=== PATIENT | female | born 1965 | race Caucasian/White ===

== ENCOUNTER 2020-06-19 08:09 | Outpatient (REF) | payer OTHER, SELFPAY ==
--- NOTE | 2020-06-19 08:15 | MM_ITS ---
EXAMINATION: MM SCREENING DIGITAL BREAST TOMOSYNTHESIS, BILATERAL CLINICAL INFORMATION: Screening. Asymptomatic. Family history breast cancer maternal great aunt. The lifetime risk of breast cancer based on the Tyrer-Cuzick Model is 10%. COMPARISON: Mammography: 06/18/2019, 06/15/2018 TECHNIQUE: Digital breast tomosynthesis is performed in both the craniocaudal and mediolateral oblique views along with computer-aided detection (CAD). Synthesized 2D images are generated from the tomosynthesis. FINDINGS: The breasts are extremely dense, which lowers the sensitivity of mammography (ACR BI-RADS breast composition Category d). There are no significant masses, abnormal calcifications, or other abnormalities. Parenchymal pattern is similar to prior studies. There is no developing density. Scattered bilateral calcifications are again seen. There is intramammary node again noted outer right breast. MM/MM tomosynthesis screening BI IMPRESSION: No significant changes from prior studies. ASSESSMENT: BI-RADS 2: Benign RECOMMENDATION: Routine annual mammography screening. This patient's information was entered into a reminder system with a target due date for their next mammogram.
== END 2020-06-19 08:10 | disposition home or self-care (01) ==
LOC: HO.MAMMO 08:09
PROVIDERS: PCP Internal Medicine; Visit Provider Internal Medicine
DX: Z12.31 Encounter for screening mammogram for malignant neoplasm of breast (principal)
CPT/HCPCS: 77063; 77067

== ENCOUNTER 2020-11-24 10:06 | Outpatient (REF) | payer OTHER, SELFPAY | END 2020-11-24 10:07 | disposition home or self-care (01) | LOC: HO.LNP 10:06 | PROVIDERS: Visit Provider Otolaryngology | DX: B37.9 Candidiasis, unspecified (principal) | CPT/HCPCS: 87102 ==

== ENCOUNTER 2021-01-27 12:02 | Outpatient (REF) | payer OTHER, SELFPAY ==
[2021-01-27 13:13] LABS: MANUAL DIFF FLAG NO
[2021-01-27 13:21] LABS: Basophils Percent Auto 0.7 % (0-2); Eosinophils Absolute Auto 0.1 X10*3/uL (0.0-0.4); Eosinophils Percent Auto 2.9 % (0-4); Hematocrit 38.6 % (37-47); Hemoglobin 12.6 g/dl (12.0-16.0); Imm Gran Abs Auto 0.01 X10*3/uL (0.00-0.03); Imm Gran Pct Auto 0.2 % (0.0-0.4); Lymphocytes Absolute Auto 1.5 X10*3/uL (1.2-4.9); Lymphocytes Percent Auto 35.6 % (20-40); Mean Corpuscular HGB Conc 32.6 g/dl (31.0-35.0); Mean Corpuscular Hemoglobin 30.7 pg (27.0-33.0); Mean Corpuscular Volume 93.9 fL (80-98); Monocytes Absolute Auto 0.3 X10*3/uL (0.1-1.2); Monocytes Percent Auto 8.1 % (2-11); Neutrophils Absolute Auto 2.1 X10*3/uL (2.0-8.3); Neutrophils Percent Auto 52.5 % (45-73); Platelet Count 325 X10*3/uL (160-400); Red Blood Count 4.11 X10*6/uL (4.20-5.50); White Blood Count 4.1 X10*3/uL (4.8-10.8)
[2021-01-27 13:54] LABS: Alanine Aminotransferase 19 U/L (0-31); Albumin Level 4.4 g/dL (3.5-5.0); Alkaline Phosphatase 64 U/L (39-117); Anion Gap 11 (12-20); Aspartate Amino Transferase 21 U/L (5-31); Bilirubin Total 1.3 mg/dL (0.0-1.0); Blood Urea Nitrogen 18 mg/dL (9-16); Calcium 9.4 mg/dL (8.4-10.2); Carbon Dioxide 28 mmol/L (22-29); Chloride 105 mmol/L (96-108); Estimated Glomerular Filt Rate > 60; Glucose Random 83 mg/dL (60-115); Potassium 4.4 mmol/L (3.3-5.1); Sodium 140 mmol/L (135-145); Total Protein 6.6 g/dL (6.5-8.0)
[2021-01-27 13:57] LABS: Cholesterol 244 mg/dL; HDL Cholesterol 66 mg/dL; LDL Cholesterol Calculated 165 mg/dl; Triglycerides 68 mg/dL
[2021-01-27 14:10] LABS: Thyroid Stimulating Hormone 1.05 uIU/mL (0.32-4.0); Vitamin D 25-OH Total 29.9 ng/mL (>30)
== END 2021-01-27 12:03 | disposition home or self-care (01) ==
LOC: HO.MANLDS 12:02
PROVIDERS: PCP Internal Medicine; Visit Provider Internal Medicine
DX: Z00.00 Encounter for general adult medical examination without abnormal findings (principal)
CPT/HCPCS: 36415; 80053; 80061; 82306; 84443; 85025

== ENCOUNTER 2021-02-04 13:02 | Outpatient (REF) | payer OTHER, SELFPAY ==
--- NOTE | ~2021-02-04 | US_ITS ---
EXAMINATION: US SCREENING ULTRASOUND BREAST, BILATERAL CLINICAL INFORMATION: Very dense breasts on mammography. Screening ultrasound. Tyrer-Cuzick Score 10%. COMPARISON: Digital breast tomosynthesis 06/19/2020; screening breast ultrasound 02/01/2019, 01/30/2018, 05/23/2017. TECHNIQUE: Ultrasound is performed using grayscale imaging and color Doppler. Imaging is performed to include the four quadrants and retroareolar region. Both breasts are imaged. FINDINGS: Right breast: There is no suspicious finding by ultrasound. There is no solid mass or focal architectural abnormality. Again, there are scattered tiny cysts under 1 cm. There is a stable 0.5 cm acorn cyst 8:00 position 6 cm from nipple with no associated color and good through transmission of sound. There is an incidental intramammary node 10:00 position 7 cm from nipple measuring 0.3 x 0.7 cm with normal lashay architecture and color flow pattern. Left breast: There is no suspicious finding by ultrasound. There is no solid mass or focal architectural abnormality. Again, there are scattered tiny cyst under 1 cm. US/US breast RT complete IMPRESSION: No suspicious findings on screening breast ultrasound. ASSESSMENT: BI-RADS 2: Benign RECOMMENDATION: Routine annual mammography screening. This patient's information was entered into a reminder system with a target due date for their next mammogram.
--- NOTE | ~2021-02-04 | US_ITS ---
EXAMINATION: US SCREENING ULTRASOUND BREAST, BILATERAL CLINICAL INFORMATION: Very dense breasts on mammography. Screening ultrasound. Tyrer-Cuzick Score 10%. COMPARISON: Digital breast tomosynthesis 06/19/2020; screening breast ultrasound 02/01/2019, 01/30/2018, 05/23/2017. TECHNIQUE: Ultrasound is performed using grayscale imaging and color Doppler. Imaging is performed to include the four quadrants and retroareolar region. Both breasts are imaged. FINDINGS: Right breast: There is no suspicious finding by ultrasound. There is no solid mass or focal architectural abnormality. Again, there are scattered tiny cysts under 1 cm. There is a stable 0.5 cm acorn cyst 8:00 position 6 cm from nipple with no associated color and good through transmission of sound. There is an incidental intramammary node 10:00 position 7 cm from nipple measuring 0.3 x 0.7 cm with normal lashay architecture and color flow pattern. Left breast: There is no suspicious finding by ultrasound. There is no solid mass or focal architectural abnormality. Again, there are scattered tiny cyst under 1 cm. US/US breast LT complete IMPRESSION: No suspicious findings on screening breast ultrasound. ASSESSMENT: BI-RADS 2: Benign RECOMMENDATION: Routine annual mammography screening. This patient's information was entered into a reminder system with a target due date for their next mammogram.
== END 2021-02-04 13:03 | disposition home or self-care (01) ==
LOC: HO.MAMMO 13:02
PROVIDERS: Visit Provider Surgery
DX: R92.2 Inconclusive mammogram (principal)
CPT/HCPCS: 76641

== ENCOUNTER → 2021-04-17 09:05 | Outpatient (BNVA) | payer OTHER, SELFPAY | PROVIDERS: PCP Internal Medicine; Visit Provider Surgery ==

== ENCOUNTER 2021-11-04 09:54 | Outpatient (REF) | payer OTHER, SELFPAY ==
--- NOTE | ~2021-11-04 | MM_ITS ---
EXAMINATION: MM SCREENING DIGITAL BREAST TOMOSYNTHESIS, BILATERAL CLINICAL INFORMATION: Screening. Asymptomatic. The lifetime risk of breast cancer based on the Tyrer-Cuzick Model is 10%. COMPARISON: Mammography: 06/19/2020, 06/18/2019, 06/15/2018; bilateral breast ultrasound 02/04/2021. TECHNIQUE: Digital breast tomosynthesis is performed in both the craniocaudal and mediolateral oblique views along with computer-aided detection (CAD). Synthesized 2D images are generated from the tomosynthesis. FINDINGS: The breasts are extremely dense, which lowers the sensitivity of mammography (ACR BI-RADS breast composition Category d). Parenchymal pattern is similar to prior studies. There is no interval significant mass or architectural abnormality, developing density, or architectural changes. Scattered benign round and coarse round calcifications are again seen. The axilla and skin contours are unremarkable. No significant changes from prior studies. MM/MM tomosynthesis screening BI IMPRESSION: No mammographic evidence of malignancy. ASSESSMENT: BI-RADS 2: Benign RECOMMENDATION: Routine annual mammography screening. This patient's information was entered into a reminder system with a target due date for their next mammogram.
== END 2021-11-04 09:55 | disposition home or self-care (01) ==
LOC: HO.MAMMO 09:54
PROVIDERS: PCP Internal Medicine; Visit Provider Internal Medicine
DX: Z12.31 Encounter for screening mammogram for malignant neoplasm of breast (principal)
CPT/HCPCS: 77063; 77067

== ENCOUNTER 2022-05-20 12:00 | Outpatient (REF) | payer OTHER, SELFPAY ==
--- NOTE | ~2022-05-20 | US_ITS ---
EXAMINATION: US SCREENING ULTRASOUND BREAST, BILATERAL CLINICAL INFORMATION: Extremely dense breasts on mammography. Screening ultrasound. Tyrer-Cuzick Score 10%. COMPARISON: Digital breast tomosynthesis 11/04/2021, bilateral breast screening ultrasound 02/04/2021 and 02/01/2019. TECHNIQUE: Ultrasound is performed using grayscale imaging and color Doppler. Imaging is performed to include the four quadrants and retroareolar region. Both breasts are imaged. FINDINGS: Right breast: There is no interval mass or architectural abnormality. No significant changes from prior exams. Again, there is a circumscribed complicated foam cyst 8:00 position 6 cm from nipple measuring 0.5 cm with increased through-transmission of sound and no associated color flow. There is an incidental intramammary node 10:00 position 7 cm from nipple with normal lashay architecture and color flow. Left breast: There is no interval mass or architectural abnormality. No significant changes from prior exams. Again, there is scattered tiny cysts present. US/US breast RT complete IMPRESSION: No suspicious findings on screening breast ultrasound. ASSESSMENT: BI-RADS 2: Benign RECOMMENDATION: Routine annual mammography screening. This patient's information was entered into a reminder system with a target due date for their next mammogram.
--- NOTE | ~2022-05-20 | US_ITS ---
EXAMINATION: US SCREENING ULTRASOUND BREAST, BILATERAL CLINICAL INFORMATION: Extremely dense breasts on mammography. Screening ultrasound. Tyrer-Cuzick Score 10%. COMPARISON: Digital breast tomosynthesis 11/04/2021, bilateral breast screening ultrasound 02/04/2021 and 02/01/2019. TECHNIQUE: Ultrasound is performed using grayscale imaging and color Doppler. Imaging is performed to include the four quadrants and retroareolar region. Both breasts are imaged. FINDINGS: Right breast: There is no interval mass or architectural abnormality. No significant changes from prior exams. Again, there is a circumscribed complicated foam cyst 8:00 position 6 cm from nipple measuring 0.5 cm with increased through-transmission of sound and no associated color flow. There is an incidental intramammary node 10:00 position 7 cm from nipple with normal lashay architecture and color flow. Left breast: There is no interval mass or architectural abnormality. No significant changes from prior exams. Again, there is scattered tiny cysts present. US/US breast LT complete IMPRESSION: No suspicious findings on screening breast ultrasound. ASSESSMENT: BI-RADS 2: Benign RECOMMENDATION: Routine annual mammography screening. This patient's information was entered into a reminder system with a target due date for their next mammogram.
== END 2022-05-20 12:01 | disposition home or self-care (01) ==
LOC: HO.MAMMO 12:00
PROVIDERS: Visit Provider Surgery
DX: R92.2 Inconclusive mammogram (principal)
CPT/HCPCS: 76641

== ENCOUNTER 2022-05-24 09:45 | Outpatient (REF) | payer OTHER, SELFPAY ==
[2022-05-24 11:06] LABS: MANUAL DIFF FLAG NO
[2022-05-24 11:08] LABS: Basophils Absolute Auto 0.1 X10*3/uL (0.0-0.2); Basophils Percent Auto 1.3 % (0-2); Eosinophils Absolute Auto 0.1 X10*3/uL (0.0-0.4); Eosinophils Percent Auto 3.6 % (0-4); Hematocrit 41.3 % (37.0-47.0); Hemoglobin 13.6 g/dl (12.0-16.0); Imm Gran Abs Auto 0.01 X10*3/uL (0.00-0.03); Imm Gran Pct Auto 0.3 % (0.0-0.4); Lymphocytes Absolute Auto 1.6 X10*3/uL (1.2-4.9); Lymphocytes Percent Auto 41.1 % (20-40); Mean Corpuscular HGB Conc 32.9 g/dl (31.0-35.0); Mean Corpuscular Hemoglobin 30.5 pg (27.0-33.0); Mean Corpuscular Volume 92.6 fL (80.0-98.0); Mean Platelet Volume 8.9 fL (9.4-12.3); Monocytes Absolute Auto 0.3 X10*3/uL (0.1-1.2); Monocytes Percent Auto 8.1 % (2-11); Neutrophils Absolute Auto 1.8 x10*3/uL (2.0-8.3); Neutrophils Percent Auto 45.6 % (45-73); Platelet Count 347 X10*3/uL (160-400); Red Blood Count 4.46 X10*6/uL (4.20-5.50); Red Cell Distribution Width 12.5 % (11.0-16.0); White Blood Count 3.8 X10*3/uL (4.8-10.8)
[2022-05-24 11:21] LABS: Estimated Average Glucose 108 mg/dL; Hemoglobin A1c % 5.4 %
[2022-05-24 11:38] LABS: Alanine Aminotransferase 17 U/L (0-31); Albumin Level 4.5 g/dL (3.5-5.0); Alkaline Phosphatase 56 U/L (39-117); Anion Gap 13 (12-20); Aspartate Amino Transferase 21 U/L (5-31); Bilirubin Total 1.1 mg/dL (0.0-1.0); Blood Urea Nitrogen 18 mg/dL (9-16); Calcium 9.3 mg/dL (8.4-10.2); Carbon Dioxide 26 mmol/L (22-29); Chloride 105 mmol/L (96-108); Cholesterol 260 mg/dL; Estimated Glomerular Filt Rate > 60; Glucose Random 106 mg/dL (60-115); HDL Cholesterol 71 mg/dL; LDL Cholesterol Calculated 180 mg/dl; Potassium 3.9 mmol/L (3.3-5.1); Sodium 140 mmol/L (135-145); Total Protein 6.6 g/dL (6.5-8.0); Triglycerides 46 mg/dL
[2022-05-24 11:59] LABS: Thyroid Stimulating Hormone 1.89 uIU/mL (0.32-4.0); Vitamin D 25-OH Total 29.6 ng/mL (>30)
[2022-05-24 12:37] LABS: Vitamin B12 235 pg/mL (200-900)
== END 2022-05-24 09:46 | disposition home or self-care (01) ==
LOC: HO.MANLDS 09:45
PROVIDERS: Visit Provider Internal Medicine
DX: Z00.00 Encounter for general adult medical examination without abnormal findings (principal)
CPT/HCPCS: 36415; 80053; 80061; 82306; 82607; 83036; 84443; 85025

== ENCOUNTER 2022-10-04 12:06 | Outpatient (REF) | payer OTHER, SELFPAY ==
[2022-10-04 14:04] LABS: MANUAL DIFF FLAG NO
[2022-10-04 14:29] LABS: Basophils Absolute Auto 0.1 X10*3/uL (0.0-0.2); Basophils Percent Auto 0.9 % (0-2); Eosinophils Absolute Auto 0.1 X10*3/uL (0.0-0.4); Eosinophils Percent Auto 1.9 % (0-4); Hematocrit 39.6 % (37.0-47.0); Hemoglobin 13.2 g/dl (12.0-16.0); Imm Gran Abs Auto 0.02 X10*3/uL (0.00-0.03); Imm Gran Pct Auto 0.4 % (0.0-0.4); Lymphocytes Absolute Auto 1.8 X10*3/uL (1.2-4.9); Lymphocytes Percent Auto 33.4 % (20-40); Mean Corpuscular HGB Conc 33.3 g/dl (31.0-35.0); Mean Corpuscular Hemoglobin 31.3 pg (27.0-33.0); Mean Corpuscular Volume 93.8 fL (80.0-98.0); Mean Platelet Volume 9.3 fL (9.4-12.3); Monocytes Absolute Auto 0.3 X10*3/uL (0.1-1.2); Neutrophils Percent Auto 57.4 % (45-73); Platelet Count 357 X10*3/uL (160-400); Red Blood Count 4.22 X10*6/uL (4.20-5.50); Red Cell Distribution Width 13.2 % (11.0-16.0); White Blood Count 5.3 X10*3/uL (4.8-10.8)
[2022-10-04 15:06] LABS: Alanine Aminotransferase 16 U/L (0-31); Albumin Level 4.4 g/dL (3.5-5.0); Alkaline Phosphatase 50 U/L (39-117); Anion Gap 13 (12-20); Aspartate Amino Transferase 20 U/L (5-31); Bilirubin Total 1.8 mg/dL (0.0-1.0); Blood Urea Nitrogen 15 mg/dL (9-16); Calcium 9.6 mg/dL (8.4-10.2); Carbon Dioxide 28 mmol/L (22-29); Chloride 105 mmol/L (96-108); Cholesterol 298 mg/dL; Estimated Glomerular Filt Rate > 60; Glucose Random 113 mg/dL (60-115); HDL Cholesterol 67 mg/dL; LDL Cholesterol Calculated 214 mg/dl; Potassium 3.8 mmol/L (3.3-5.1); Sodium 142 mmol/L (135-145); Total Protein 6.6 g/dL (6.5-8.0); Triglycerides 87 mg/dL
[2022-10-04 15:26] LABS: Folate 16.7 ng/mL (> or = 4.0); Vitamin B12 222 pg/mL (200-900)
== END 2022-10-04 12:07 | disposition home or self-care (01) ==
LOC: HO.MANLDS 12:06
PROVIDERS: Visit Provider Internal Medicine
DX: E53.8 Deficiency of other specified B group vitamins (principal)
CPT/HCPCS: 36415; 80053; 80061; 82607; 82746; 85025

== ENCOUNTER 2022-11-12 10:01 | Outpatient (REF) | payer OTHER, SELFPAY ==
--- NOTE | ~2022-11-12 | MM_ITS ---
EXAMINATION: MM SCREENING DIGITAL BREAST TOMOSYNTHESIS, BILATERAL CLINICAL INFORMATION: Screening. Asymptomatic. The lifetime risk of breast cancer based on the Tyrer-Cuzick Model is 9%. COMPARISON: Mammography: 11/04/2021, 06/19/2020, 06/18/2019; bilateral screening breast ultrasound 05/20/2022, 02/04/2021. TECHNIQUE: Digital breast tomosynthesis is performed in both the craniocaudal and mediolateral oblique views along with computer-aided detection (CAD). Synthesized 2D images are generated from the tomosynthesis. FINDINGS: The breasts are extremely dense, which lowers the sensitivity of mammography (ACR BI-RADS breast composition Category d). There are no significant masses, abnormal calcifications, or other abnormalities. Parenchymal pattern is similar to prior studies. There is no developing density or architectural abnormality. The axilla and skin contours are unremarkable. No significant changes. MM/MM tomosynthesis screening BI IMPRESSION: No significant changes from prior studies. ASSESSMENT: BI-RADS 2: Benign RECOMMENDATION: Routine annual mammography screening. This patient's information was entered into a reminder system with a target due date for their next mammogram.
== END 2022-11-12 10:02 | disposition home or self-care (01) ==
LOC: HO.MAMMO 10:01
PROVIDERS: PCP Internal Medicine; Visit Provider Internal Medicine
DX: Z12.31 Encounter for screening mammogram for malignant neoplasm of breast (principal)
CPT/HCPCS: 77063; 77067

== ENCOUNTER 2023-04-19 10:42 | Outpatient (AMB) | payer OTHER, SELFPAY ==
--- NOTE | 2023-04-19 10:44 | A.OFFVIS_ITS ---
Intake Vital Signs 04/19/23 10:53 Height 5 ft 9 in Weight 161 lb 4 oz BMI 23.8 BP 127/71 Blood Pressure Location Lt brachial Position Sitting Pulse 77 Intake Visit Reasons: Annual breast exam Intake Note: Patient is seen in office for annual breast exam. Patient c/o: denies any concerns regarding the breast Dredge Or Barge Shore Hand Required: No [employer]: [employer] Present Accompanied by: Self / Same As Patient Allergies No Known Allergies Allergy (Verified 04/19/23 10:52) Medication List - Last Reconciled 04/19/23 by Kamari Ray MD sumatriptan succinate 100 mg PO DIRECTED HPI HPI Comments History of Present Illness Details 57 year old female patient returning for annual follow-up examination for extremely dense breast tissue (category D). She is a former patient of Dr. Monroe and Dr. Key as well as Drs. Villarreal and Antonia Ho. She has a family history of a maternal great aunt with breast cancer and 2 cousins with malignant melanoma. She denies a previous history of breast surgery but has had cyst aspirations. Because of her dense breast tissue she has been undergoing screening bilateral ultrasounds as well as yearly mammograms. Her most recent mammogram dated 11/12/2022 revealed extremely dense breasts but no significant masses, abnormal calcifications or other abnormalities. (BI-RADS 2). Screening ultrasounds of 05/20/2022 revealed no suspicious findings on either side (BI-RADS 2 benign). She is G5P 3 with 2 miscarriages. She breast fed her children. Menarche was the age of 15, 1st child at the age of 31, menopause at the age of 52. She denies any current breast symptoms and denies any new findings on self examination. She also reports a ganglion cyst located on her left hand between the webspace of the thumb and index finger. She denies any pain associated with it but would like to have it evaluated. [facility] Medical History Cystic breast Migraine Surgical History History of colonoscopy History of dilatation and curettage Female Reproductive History Menstrual Age of Menarche: 15 Review of Systems Const All systems reviewed & are unremarkable except as noted in HPI and below Reports headache(s) ENT Reports headache(s) Denies nipple discharge Skin/Breast Denies breast swelling, Denies breast skin changes, Denies breast pain, Denies breast mass, Denies change in breast shape and Denies nipple discharge Neuro Reports headache(s) Faisal/Lymph Denies lymphadenopathy Physical Exam Vital Signs: Last Vital Signs Pulse 77 04/19/23 10:53 BP 127/71 04/19/23 10:53 BMI result Body Mass Index 23.8 Const General: no acute distress and well developed Nutritional Appearance: well nourished Orientation/consciousness: patient oriented x3 Limitations: no limitations Neck Neck: Yes no lymphadenopathy and Yes no JVD Chest Other: Left breast: No skin change, no nipple retraction, no nipple discharge, no palpable mass, no enlarged lymph nodes. Right breast: No skin change, no nipple retraction, no nipple discharge, no palpable mass, no enlarged lymph nodes Skin Other: Warm, dry, no rash Neuro General: patient oriented x3 Extrem General: Yes no clubbing, cyanosis or edema Hand/finger images: 1. Palpable cyst at base of thumb of the webspace approximately 1 cm diameter Assessment & Plan Assessment & Plan (1) Dense breast tissue on mammogram: Code(s): R92.2 - Inconclusive mammogram Plan 57-year-old female patient presenting for screening breast examination due to dense breast tissue. She feels well and denies any ongoing breast symptoms. Her last mammogram of 11/12/2022 revealed no suspicious findings either side. Her breast continue to be dense category D. Annual screening ultrasound perf ormed on 05/20/2022 revealed no suspicious findings (BI-RADS 2). Examination today revealed no suspicious findings in either breast with no palpable mass, skin change, nipple discharge or enlarged lymph node. I recommended continued self examination and follow-up breast ultrasound now and mammogram in October 2023. She should follow up in 1 year for her annual examination. She should call sooner for any new concerns. Hand surgery consult requested for the ganglion left hand. Orders: Orders US breast LT complete 05/21/23 R92.2 - Inconclusive mammogram US breast RT complete Today R92.2 - Inconclusive mammogram Referrals Hand Surgery Referral M67.40 - Ganglion, unspecified site Coding Level of Care Code Est Pt Level 3 (09984) Diagnoses Dense breast tissue on mammogram R92.2
[2023-04-19 10:53] VITALS: BP 127/71; PULSE 77; BMI 23.8
== END 2023-04-19 11:06 | disposition home or self-care (01) ==
PROVIDERS: PCP Internal Medicine; Visit Provider Surgery
DX: R92.2 Inconclusive mammogram (principal)
CPT/HCPCS: 99214

== ENCOUNTER → 2023-04-19 10:42 | Outpatient (BNVA) | payer OTHER, SELFPAY | PROVIDERS: PCP Internal Medicine; Visit Provider Surgery ==

== ENCOUNTER 2023-06-07 14:14 | Outpatient (AMB) | payer OTHER, SELFPAY ==
[2023-06-07 14:26] VITALS: BMI 23.8
--- NOTE | 2023-06-07 14:26 | MHC.OFFVIS ---
Intake Vital Signs 06/07/23 14:26 Height 5 ft 9 in Weight 161 lb BMI 23.8 Intake Visit Reasons: RN CORRECTIONS-LT hand Ganglion, unspecified site Intake Note: Ying 58 yr old right hand dominant female presents today for a new patient visit for her left thumb ganglion cyst. States she first notice mass between her index and thumb web space. Reports no pain just mild discomfort and has noticed it grew a tiny bit. States she is would like to discuss aspiration vs surgery. Allergies No Known Allergies Allergy (Verified 06/07/23 14:30) HPI RN CORRECTIONS-LT hand Ganglion, unspecified site HPI Details Ying is a 58 year old right hand dominant woman who presents to discuss a left hand mass. She complains of a mass in the webspace between the thumb and index finger of her left hand. She says this causes some discomfort but is not particularly painful. She says she first noticed this several weeks ago and it has grown slightly. She denies any numbness or tingling She works as a teacher [facility] Medical History Cystic breast Migraine Surgical History History of colonoscopy History of dilatation and curettage Social History (Updated 06/07/23 @ 14:31 by Fatoumata Gracia CCM) Current occupational status: employed Current occupation: rt hand / professor in college Female Reproductive History Menstrual Age of Menarche: 15 Review of Systems Const All systems reviewed & are unremarkable except as noted in HPI and below Physical Exam Vital Signs: BMI result Body Mass Index 23.8 Const General: cooperative, healthy appearing and no acute distress Orientation/consciousness: patient oriented x3 HEENT Head: Yes normocephalic and Yes atraumatic Eyes EOM: EOMs intact bilaterally Resp Effort & Inspection: normal respiratory effort and able to speak in complete sentences Cardio Jugular venous distension: no JVD Skin General skin exam: turgor normal Rashes: no rashes Neuro General: patient oriented x3 Extrem Other: Evaluation of Left Upper Extremity: The patient is alert, oriented, and in no acute distress Neuro: Median, Ulnar, Radial nerves motor and sensory intact and sensation is normal to the tips of all digits Vascular: Cap refill brisk ROM: She can make a fist and extend all her digits No locking or catching No instability when testing the RCL or UCL of the thumb Skin: No lacerations or abrasions. General: No Ecchymosis. No Erythema or evidence of infection. There is a mass over the ulnar aspect of the left thumb MCP joint , measuring ~8-9mm in diameter. This is slightly mobile and feels fluid-filled Psych Appearance: grossly normal Affect: normal affect Attitude: cooperative Office Procedures Fracture Care Details: No fracture, aspiration Fracture Billing Code: Fracture Billing Code Results Reviewed Results Reviewed: 06/07/23 15:00 Lidocaine HCl 1 % [Xylocaine 1 %] 2 ml .ROUTE .[facility] Assessment & Plan Assessment & Plan (1) Ganglion cyst: Comment: left thumb Code(s): M67.40 - Ganglion, unspecified site Plan Assessment & Plan: 1. Left thumb ganglion cyst Measuring ~8-9mm in diameter Over the ulnar aspect of the MCP joint I educated her about this condition I discussed operative and non-operative treatment options The patient would like to proceed with aspiration Aspiration #1: The risks and benefits of aspiration, including but not limited to risk of damage to blood vessels, nerves, tendons, infection, failure to improve symptoms, increased pain, and possible need for further aspirations or surgical intervention. After obtaining written consent, I sterilely prepped the area over the left thumb MCP joint. I then injected subcutaneously with a small amount 1% lidocaine. I then passed an 18 gauge needle into the ganglion and aspirated . Some remaining viscous fluid was then pushed out of the ganglion. The mass was no longer palpable to myself nor the patient after the aspiration. The patient tolerated this well and with no complications. She can follow up prn Scribed for Gwen Nickerson MD by Ashok Joseph medical office supervisor, on 06/07/23 at 3:20 PM, EST. Coding Level of Care Code New Pt Level 3 (20034) Diagnoses Ganglion cyst M67.40 CPT Codes Fracture Care - Fracture Billing Code: Fracture Billing Code ([id number])
== END 2023-06-07 15:41 | disposition home or self-care (01) ==
PROVIDERS: PCP Internal Medicine; Visit Provider Orthopaedic Surgery
DX: M67.442 Ganglion, left hand (principal)
CPT/HCPCS: 20612; 99204

== ENCOUNTER → 2023-06-07 14:14 | Outpatient (BNVA) | payer OTHER, SELFPAY | PROVIDERS: PCP Internal Medicine; Visit Provider Orthopaedic Surgery | DX: M67.442 Ganglion, left hand (principal) | CPT/HCPCS: 20612 ==

== ENCOUNTER 2023-06-13 07:53 | Outpatient (REF) | payer OTHER, SELFPAY ==
[2023-06-13 14:02] LABS: Cholesterol 147 mg/dL (<200); HDL Cholesterol 62 mg/dL (>40); LDL Cholesterol Calculated 74 mg/dL (<100); Triglycerides 57 mg/dL (<150)
== END 2023-06-13 07:54 | disposition home or self-care (01) ==
LOC: HO.MANLDS 07:53
PROVIDERS: Visit Provider Internal Medicine
DX: E78.00 Pure hypercholesterolemia, unspecified (principal)
CPT/HCPCS: 36415; 80061

== ENCOUNTER 2023-06-13 11:57 | Outpatient (REF) | payer OTHER, SELFPAY ==
--- NOTE | ~2023-06-13 | US_ITS ---
EXAMINATION: US BREAST, BILATERAL CLINICAL INFORMATION: Dense breasts; screening adjunct. COMPARISON: 05/20/2022 and 02/04/2021 bilateral screening breast ultrasound. TECHNIQUE: Time grayscale and color Doppler ultrasound imaging of both breasts were performed utilizing grayscale and color Doppler imaging, to include the 4 quadrants of both breasts, and both retroareolar regions. FINDINGS: LEFT BREAST: On the images submitted for review, in the retroareolar 3:00 region of the left breast, a stable mildly complicated cyst was identified measuring 5 x 5 x 6 mm, with good through transmission, no internal color Doppler flow, and no surrounding parenchymal changes, and abutting ductal changes. This is stable from February 042020, and benign. Otherwise, only extremely dense breast tissue identified. RIGHT BREAST: On the images submitted for review, a normal intramammary lymph node was identified superficially in the right breast upper outer quadrant with normal fatty hilum and non-thickened cortex. This has no suspicious findings. Otherwise, only extremely dense breast tissue is identified with US/US breast RT complete mammo IMPRESSION: No sonographic evidence of malignancy in either breast. ASSESSMENT: Left breast: BI-RADS 2 Right breast: BI-RADS 2 RECOMMENDATIONS: Recommend continuing with routine annual screening.
--- NOTE | ~2023-06-13 | US_ITS ---
EXAMINATION: US BREAST, BILATERAL CLINICAL INFORMATION: Dense breasts; screening adjunct. COMPARISON: 05/20/2022 and 02/04/2021 bilateral screening breast ultrasound. TECHNIQUE: Time grayscale and color Doppler ultrasound imaging of both breasts were performed utilizing grayscale and color Doppler imaging, to include the 4 quadrants of both breasts, and both retroareolar regions. FINDINGS: LEFT BREAST: On the images submitted for review, in the retroareolar 3:00 region of the left breast, a stable mildly complicated cyst was identified measuring 5 x 5 x 6 mm, with good through transmission, no internal color Doppler flow, and no surrounding parenchymal changes, and abutting ductal changes. This is stable from February 042020, and benign. Otherwise, only extremely dense breast tissue identified. RIGHT BREAST: On the images submitted for review, a normal intramammary lymph node was identified superficially in the right breast upper outer quadrant with normal fatty hilum and non-thickened cortex. This has no suspicious findings. Otherwise, only extremely dense breast tissue is identified with US/US breast LT complete mammo IMPRESSION: No sonographic evidence of malignancy in either breast. ASSESSMENT: Left breast: BI-RADS 2 Right breast: BI-RADS 2 RECOMMENDATIONS: Recommend continuing with routine annual screening.
== END 2023-06-13 11:58 | disposition home or self-care (01) ==
LOC: HO.MAMMO 11:57
PROVIDERS: PCP Internal Medicine; Visit Provider Surgery
DX: R92.2 Inconclusive mammogram (principal)
CPT/HCPCS: 76641

== ENCOUNTER → 2023-06-13 12:25 | Outpatient (BNV) | payer OTHER, SELFPAY | PROVIDERS: PCP Internal Medicine; Visit Provider Radiology Diagnostic Radiology | DX: R92.311 Mammographic fatty tissue density, right breast (principal); N60.02 Solitary cyst of left breast | CPT/HCPCS: 76641 ==

== ENCOUNTER → 2023-07-01 09:00 | Outpatient (BNV) | payer OTHER, SELFPAY | PROVIDERS: PCP Internal Medicine; Visit Provider Internal Medicine Pulmonary Disease | DX: R06.02 Shortness of breath (principal) | CPT/HCPCS: 94060; 94727; 94729 ==

== ENCOUNTER 2023-07-01 09:06 | Outpatient (REF) | payer OTHER, SELFPAY ==
--- NOTE | 2023-07-01 | PFT_ITS ---
FLOWS: 1. FEV1 110% of predicted at 3.35 L. 2. FVC 120% of predicted at 4.69 L. 3. FEV1 to FVC ratio of 0.71. 4. No bronchodilator response. LUNG VOLUMES: 1. Total lung capacity 106% of predicted at 6.48 L. 2. Residual volume 92% of predicted at 1.79 L. 3. Slow vital capacity 113% of predicted at 4.69 L. 4. Expiratory reserve volume 31% of predicted at 0.34 L. 5. Diffusion capacity is normal. IMPRESSION: No obstructive or restrictive ventilatory defect. No bronchodilator response. Decreased expiratory reserve volume suggests extrathoracic restriction likely secondary to abdominal obesity. Kurt Tsai MD AP/MODL / [id number]
== END 2023-07-01 09:07 | disposition home or self-care (01) ==
LOC: HO.RESP 09:06
PROVIDERS: PCP Internal Medicine; Visit Provider Physician Assistant
DX: R06.02 Shortness of breath (principal)
CPT/HCPCS: 94010; 94727; 94729

== ENCOUNTER 2023-07-13 16:48 | Outpatient (REF) | payer OTHER, SELFPAY ==
--- NOTE | ~2023-07-13 | XR_ITS ---
EXAMINATION: XR CHEST CLINICAL INFORMATION: Chest pain and cough COMPARISON: None available. TECHNIQUE: 2 views of the chest were obtained. FINDINGS: Lungs are hyper aerated but clear. Heart, mediastinum and vascularity within normal limits. Bony structures are intact. XR/XR chest 2V IMPRESSION: No acute cardiopulmonary disease.
== END 2023-07-13 16:49 | disposition home or self-care (01) ==
LOC: HO.XRAY 16:48
PROVIDERS: PCP Physician Assistant; Visit Provider Physician Assistant
DX: R06.02 Shortness of breath (principal)
CPT/HCPCS: 71046

== ENCOUNTER 2023-08-03 11:00 | Outpatient (AMB) | payer OTHER, SELFPAY ==
[2023-08-03 11:03] VITALS: BP 132/68; PULSE 86; O2SAT 100; BMI 24.4
--- NOTE | 2023-08-03 11:03 | MHC.OFFVIS ---
Intake Vital Signs 08/03/23 11:03 Height 5 ft 9 in Weight 165 lb BMI 24.4 BP 132/68 Blood Pressure Location Rt brachial Position Sitting Pulse 86 Pulse Source Pulse Oximeter Pulse Oximetry (%) 100 Oxygen Delivery Method Room Air Intake Visit Reasons: Dyspnea Contact Centre Supervisor Required: No Rn Radiology: Rn Radiology offered & declined Accompanied by: Self / Same As Patient Allergies No Known Allergies Allergy (Verified 08/03/23 11:09) Medication List - Last Reconciled 08/03/23 by Karly Guajardo LPN atorvastatin 20 mg PO BEDTIME sumatriptan succinate 100 mg PO DIRECTED HPI Dyspnea HPI Details Ying is a pleasant 58 year old female, former smoker with 20+ pack year history, quit 25+ years ago, with underlying history of anxiety and migraines. She was referred for pulmonary evaluation for intermittent chest tightness and dyspnea. She notes the intermittent chest tightness has been present for years but newly developed dyspnea. She used to run frequently but becomes breathless more than prior. She continues to be quite active walking 5 miles routinely. She had a PFT, full report below. She also had a CXR which revealed hyperinflation, otherwise unremarkable. She denies any history of respiratory conditions, however does eczema, seasonal allergies and chronic post nasal drip. She reports mother, heavy smoker, with COPD and two paternal uncles with sudden onset unknown respiratory conditions. [facility] Medical History Cystic breast Migraine Surgical History History of colonoscopy History of dilatation and curettage Social History (Updated 08/04/23 @ 19:37 by Sushila Thompson NP) Patient Tobacco Use Status: Former Tobacco user Tobacco use type: Cigarette Cigarette Packs Per Day: 1.5 Years Smoked: 15 Current occupational status: employed Current occupation: rt hand / professor in college Female Reproductive History Menstrual Age of Menarche: 15 Review of Systems Const Denies chills, Denies excessive sweating, Denies fever(s), Denies headache(s) and Denies night sweats Eyes Denies dry eyes, Denies irritation and Denies itchy eyes ENT Reports Normal hearing present, Denies headache(s), Denies nasal congestion, Denies nasal discharge and Denies sore throat Card Denies chest pain, Denies chest pain at rest, Denies chest pain with activity, Denies claudication, Denies leg edema, Denies orthopnea and Denies paroxysmal nocturnal dyspnea Resp Denies chest congestion, Denies cough, Denies excessive phlegm production, Denies pain on inspiration, Denies pain with cough, Denies stridor and Denies wheezing Musc Denies myalgias Neuro Reports Normal hearing present and Denies headache(s) Endo Denies excessive sweating Faisal/Lymph Denies lymphadenopathy Aller/Immun Denies itchy eyes and Denies wheezing Physical Exam Vital Signs: Last Vital Signs Pulse 86 08/03/23 11:03 BP 132/68 08/03/23 11:03 Pulse Ox 100 08/03/23 11:03 Oxygen Delivery Method Room Air 08/03/23 11:03 BMI result Body Mass Index 24.4 Const General: cooperative, healthy appearing, comfortable, no acute distress, well developed and alert Orientation/consciousness: patient oriented x3 Limitations: no limitations HEENT Head: Yes normal to inspection, Yes normocephalic and Yes atraumatic Ears: hearing grossly normal bilaterally and external ears normal Eyes General: appearance normal, both eyes and all related structures Eyelids: Yes eyelids normal Sclerae: sclerae normal EOM: EOMs intact bilaterally Neck Neck: Yes normal visual inspection and Yes no lymphadenopathy Lymphatic: no lymphadenopathy noted Chest Chest palpation & inspection: normal inspection of the chest Resp Effort & Inspection: normal respiratory effort, able to speak in complete sentences, no audible wheezes, no cough, no stridor, not tachypneic, no tripod positioning and no use of accessory muscles Auscultation: clear to auscultation bilaterally Cardio Jugular venous distension: no JVD Rate: regular rate Rhythm: regular rhythm Skin Other: warm, dry General skin exam: no rashes or lesions noted Neuro General: patient oriented x3 Cranial nerves: Yes Normal hearing present Cognition (Neuro): normal cognition Gait exam (Neuro): Normal gait present Extrem General: Yes normal to inspection, Yes capillary refill normal, Yes no clubbing, cyanosis or edema and Yes no pedal edema Psych Appearance: grossly normal and well kempt Speech and movement: Normal speech and movement present and Clear speech present Affect: normal affect Attitude: cooperative Thought process: Normal thought process present Thought content: Normal thought content present Insight: Good insight present (Psych) Judgement: Good judgement present (Psych) Results Reviewed Results Reviewed: [address] [address] XRay Report Signed Patient: Ying Mcarthur MR#: [id number] : 1965 Acct:[id number] Age/Sex: 58 / F ADM Date: 07/13/23 Loc: [facility] Attending Dr: Kristina LOZA Ordering Physician: Kristina Torres Date of Service: 07/13/23 Procedure(s): XR chest 2V Accession Number(s): [id number] cc: Kristina Torres~ EXAMINATION: XR CHEST CLINICAL INFORMATION: Chest pain and cough COMPARISON: None available. TECHNIQUE: 2 views of the chest were obtained. FINDINGS: Lungs are hyper aerated but clear. Heart, mediastinum and vascularity within normal limits. Bony structures are intact. XR/XR chest 2V IMPRESSION: No acute cardiopulmonary disease. Dictated By: Rand Biggs MD Signed By: <Electronically signed by Rand Biggs MD in OV> 07/15/23 0834 Assessment & Plan Assessment & Plan (1) Reactive airway disease: Code(s): J45.909 - Unspecified asthma, uncomplicated (2) Personal history of tobacco use: Code(s): Z87.891 - Personal history of nicotine dependence (3) Dyspnea on exertion: Code(s): R06.09 - Other forms of dyspnea Plan Reviewed PFT which did not reveal an obstructive or restrictive ventilatory defect. There was no bronchodilator response.There was a decrease in expiratory reserve volume which could be related to poor technique, patient stated she had coughing/clearing of throat constantly due to post nasal drip during the test. We discussed possible nasal spray and RAST testing but declined at this time. She notes dyspnea on exertion as well as chest tightness, will trial albuterol PRN and if notable improvement she would consider a maintenance inhaler. Will also send for a chest CT to assess for parenchymal disease given smoking history and hyperinflation of lungs noted on CXR. All questions were answered and patient is in agreement of plan. Will follow up to review response to albuterol and chest CT results or sooner if needed. Orders: Orders CT chest wo IV con Today R06.09 - Other forms of dyspnea, Z87.891 - Personal history of nicotine dependence Medications: New albuterol sulfate 90 mcg/actuation 2 puffs inhalation Q4-6H PRN 1 ea 3RF shortness of breath or wheezing Coding Level of Care Code New Pt Level 4 (48325) Diagnoses Reactive airway disease J45.909 Personal history of tobacco use Z87.891 Dyspnea on exertion R06.09
== END 2023-08-03 11:37 | disposition home or self-care (01) ==
PROVIDERS: PCP Physician Assistant; Referring Provider Physician Assistant; Visit Provider Nurse Practitioner Family
DX: J45.909 Unspecified asthma, uncomplicated (principal); Z87.891 Personal history of nicotine dependence; R06.09 Other forms of dyspnea
CPT/HCPCS: 99204

== ENCOUNTER → 2023-08-03 11:00 | Outpatient (BNVA) | payer OTHER, SELFPAY | PROVIDERS: PCP Physician Assistant; Referring Provider Physician Assistant; Visit Provider Nurse Practitioner Family ==

== ENCOUNTER 2023-08-31 07:24 | Outpatient (REF) | payer OTHER, SELFPAY ==
--- NOTE | ~2023-08-31 | CT_ITS ---
EXAMINATION: CT CHEST WITHOUT CONTRAST CLINICAL INFORMATION: Dyspnea. COMPARISON: Chest radiograph 07/13/2023. TECHNIQUE: Multidetector volumetric CT imaging of the chest was done. Axial MIP volume rendering provided. Sagittal and coronal reformatted images were obtained. This CT examination was performed using dose optimization techniques as appropriate, variously including the following: *Automated exposure control *Adjustment of mA and/or kV according to patient size (this includes techniques or standardized protocols for targeted exams where dose is matched to indication/reason for exam; i.e. extremities or head) *Use of iterative reconstruction technique DLP: 126.00 mGy-cm FINDINGS: LUNGS: Mild emphysematous changes are present throughout the lungs. Calcified granulomas are seen in the upper lobes as well as lower lobes. Tiny micronodules are present, none larger than 2 to 3 mm in size. Lawrence images of all have been saved. No suspicious lung masses are seen. MEDIASTINUM: The mediastinum is normal. CORONARY ARTERY CALCIFICATION: None visualized on this study. PLEURA: There is no pleural effusion. No pleural mass or thickening. AXILLA: No lymphadenopathy. UPPER ABDOMEN: Unremarkable. OSSEOUS STRUCTURES: Unremarkable. CT/CT chest wo IV con IMPRESSION: 1. Mild emphysematous changes. 2. Calcified granulomas and tiny micronodules. 3. No suspicious lung masses are seen. 4. No evidence of pulmonary metastatic disease. 5. Other than mild emphysema, cause for the patient's dyspnea has not been found. According to the UPDATED 2017 Fleischner Society recommendations, the advised follow-up imaging for solid nodules <6 mm in the middle/lower lobes is no routine follow up. According to the UPDATED 2017 Fleischner Society recommendations, the advised follow-up imaging for nodules <6mm in the upper lobes is not necessarily required in low-risk patients. In high-risk patients with a nodule in the upper lobe and/or demonstrating suspicious morphology, an optional CT follow-up at 12 months may be obtained. If stable at 12 months, no further follow-up is recommended.
== END 2023-08-31 07:25 | disposition home or self-care (01) ==
LOC: HO.CT 07:24
PROVIDERS: PCP Physician Assistant; Visit Provider Nurse Practitioner Family
DX: R06.09 Other forms of dyspnea (principal); Z87.891 Personal history of nicotine dependence
CPT/HCPCS: 71250

== ENCOUNTER 2023-09-15 14:01 | Outpatient (REF) | payer OTHER, SELFPAY ==
[2023-09-15 14:11] LABS: MANUAL DIFF FLAG NO
[2023-09-15 14:33] LABS: Basophils Percent Auto 0.8 % (0-2); Eosinophils Absolute Auto 0.1 X10*3/uL (0.0-0.4); Eosinophils Percent Auto 1.9 % (0-4); Hematocrit 38.4 % (37.0-47.0); Hemoglobin 12.6 g/dl (12.0-16.0); Imm Gran Abs Auto 0.01 X10*3/uL (0.00-0.03); Imm Gran Pct Auto 0.2 % (0.0-0.4); Lymphocytes Absolute Auto 1.5 X10*3/uL (1.2-4.9); Lymphocytes Percent Auto 28.2 % (20-40); Mean Corpuscular HGB Conc 32.8 g/dl (31.0-35.0); Mean Corpuscular Hemoglobin 30.7 pg (27.0-33.0); Mean Corpuscular Volume 93.7 fL (80.0-98.0); Mean Platelet Volume 8.8 fL (9.4-12.3); Monocytes Absolute Auto 0.4 X10*3/uL (0.1-1.2); Monocytes Percent Auto 6.6 % (2-11); Neutrophils Absolute Auto 3.3 x10*3/uL (2.0-8.3); Neutrophils Percent Auto 62.3 % (45-73); Platelet Count 317 X10*3/uL (160-400); Red Cell Distribution Width 12.9 % (11.0-16.0); White Blood Count 5.3 X10*3/uL (4.8-10.8)
[2023-09-22 08:48] LABS: Class Alternaria alternata 0; Class Aspergillus fumigatus 0; Class Bermuda Grass 0; Class Birch 0; Class Cat Dander 0; Class Cladosporium herbarum 0; Class Cockroach 0; Class Common Ragweed 0; Class Cottonwood 0; Class Derm. pterony 0; Class Dermatophagoides farinae 0; Class Dog Dander 0; Class Elm 0; Class Maple Box Elder 0; Class Mountain Cedar 0; Class Mouse Urine Protein 0; Class Mugwort 0; Class Oak 0; Class Penicillium crysogenum 0; Class Rough Pigweed 0; Class Sheep Sorrel 0; Class Sycamore 0; Class Timothy Grass 0; Class Walnut Tree 0; Class White Ash 0; Class White Mulberry 0; D001 IgE D pteronyssinus <0.10 kU/L; D002 - IgE D farinae <0.10 kU/L; E001 - IgE Cat Dander <0.10 kU/L; E005 - IgE Dog Dander <0.10 kU/L; E072-IgE Mouse Urine <0.10 kU/L; G002 IgE Bermuda Grass <0.10 kU/L; G006 - IgE Timothy Grass <0.10 kU/L; I006-IgE Cockroach, German <0.10 kU/L; Immunoglobulin E 13 kU/L (<OR=114); M001 IgE Penicillium chrysogen <0.10 kU/L; M002 - IgE Cladosporium herbar <0.10 kU/L; M003 - IgE Aspergillus fumigat <0.10 kU/L; M006 - IgE Alternaria alternat <0.10 kU/L; T001 IgE Maple/Box Elder <0.10 kU/L; T003 IgE Common Silver Birch <0.10 kU/L; T006 - IgE Cedar, Mountain <0.10 kU/L; T007 - IgE Oak, White <0.10 kU/L; T008 IgE Elm, American <0.10 kU/L; T010 - IgE Walnut <0.10 kU/L; T011 - IgE Maple Leaf Sycamore <0.10 kU/L; T014 - IgE Cottonwood <0.10 kU/L; T015 - IgE Ash, White <0.10 kU/L; T070 - IgE White Mulberry <0.10 kU/L; W001 - IgE Ragweed, Short <0.10 kU/L; W006 - IgE Mugwort <0.10 kU/L; W014 IgE Pigweed, Common <0.10 kU/L; W018 IgE Sheep Sorrel <0.10 kU/L
== END 2023-09-15 14:02 | disposition home or self-care (01) ==
LOC: HO.LAB 14:01
PROVIDERS: PCP Internal Medicine; Visit Provider Nurse Practitioner Family
DX: Z91.09 Other allergy status, other than to drugs and biological substances (principal)
CPT/HCPCS: 36415; 82785; 85025; 86003

== ENCOUNTER 2023-09-21 09:01 | Outpatient (AMB) | payer OTHER, SELFPAY ==
--- NOTE | 2023-09-21 09:50 | MHC.OFFVIS ---
Intake Intake Visit Reasons: shortness of breath concern Allergies No Known Allergies Allergy (Verified 08/03/23 11:09) HPI shortness of breath concern HPI Details Ying is a pleasant 58 year old female, former smoker with 20+ pack year history, quit 25+ years ago, with underlying history of anxiety and migraines. She was initially referred for pulmonary evaluation for intermittent chest tightness and dyspnea. PFT revealed FEV1/FVC lower limit of normal, 0.71, and chest CT revealed mild emphysema. She continues to be quite active exercising frequently and feels her breathlessness improves after working out. Today a telephone visit was conducted as she had questions regarding dyspnea and anxiety contribution. Recently she notes a great deal of stress and has had more episodes of chest tigthness/dyspnea. She had attributed it initially to being more aware of symptoms associated with being at risk for COPD however feels as though anxiety plays a significant role. She was prescribed symbicort but has yet to trial it. [facility] Medical History Cystic breast Migraine Surgical History History of colonoscopy History of dilatation and curettage Social History (Updated 08/04/23 @ 19:37 by Sushila Thompson NP) Patient Tobacco Use Status: Former Tobacco user Tobacco use type: Cigarette Cigarette Packs Per Day: 1.5 Years Smoked: 15 Current occupational status: employed Current occupation: rt hand / professor in college Female Reproductive History Menstrual Age of Menarche: 15 Review of Systems Const All systems reviewed & are unremarkable except as noted in HPI and below Physical Exam Const General: cooperative and no acute distress Orientation/consciousness: patient oriented x3 Resp Effort & Inspection: normal respiratory effort, able to speak in complete sentences and no audible wheezes Neuro General: patient oriented x3 Psych Mental Status: mental status grossly normal Speech and movement: Clear speech present Attitude: cooperative Thought process: Normal thought process present Thought content: Normal thought content present Insight: Good insight present (Psych) Judgement: Good judgement present (Psych) Assessment & Plan Assessment & Plan (1) Dyspnea on exertion: Code(s): R06.09 - Other forms of dyspnea (2) Emphysema of lung: Code(s): J43.9 - Emphysema, unspecified (3) Personal history of tobacco use: Code(s): Z87.891 - Personal history of nicotine dependence Plan Advised Ying to continue to exercise which would decrease breathlessness, while improving lung function over time as well as decrease anxiety. She is under the care of a therapist for anxiety and is aware this can be contributing to symptoms. She feels she can manage symptoms without medication through meditation and exercise. She does have symbicort to trial and if she feels her symptoms are more persistent then will consider using. At this time, patient will follow up PRN as she will be taking family medical leave. All questions were answered and patient is in agreement of plan. I spent 15 minutes speaking with the patient on the phone plus an additional 10 minutes reviewing and updating records for a total of 25 minutes Telehealth Telehealth Location of provider rendering services: practice address Location of patient: address on file Patient Identification confirmed using: Name, : Yes Telehealth method: voice only Patient verbally consented to treatment: Yes Patient verbally consented to billing insurance company: Yes Patient informed of any privacy concerns related to visit: Yes Coding Level of Care Code Tele Est Pt Level 4 (70706) Diagnoses Dyspnea on exertion R06.09 Emphysema of lung J43.9 Personal history of tobacco use Z87.891
== END 2023-09-21 09:44 | disposition home or self-care (01) ==
LOC: HO.HPS 09:01
PROVIDERS: PCP Internal Medicine; Visit Provider Nurse Practitioner Family
DX: J43.9 Emphysema, unspecified (principal); Z87.891 Personal history of nicotine dependence
CPT/HCPCS: 99214

== ENCOUNTER → 2023-09-21 09:01 | Outpatient (BNVA) | payer OTHER, SELFPAY | PROVIDERS: PCP Internal Medicine; Visit Provider Nurse Practitioner Family ==

== ENCOUNTER → 2023-11-19 10:00 | Outpatient (BNV) | payer OTHER, SELFPAY | PROVIDERS: Absent Provider Surgery; PCP Student in an Organized Health Care Education/Training Program; Visit Provider Radiology Diagnostic Radiology | DX: Z12.31 Encounter for screening mammogram for malignant neoplasm of breast (principal) | CPT/HCPCS: 77063; 77067 ==

== ENCOUNTER 2023-11-19 10:06 | Outpatient (REF) | payer OTHER, SELFPAY ==
--- NOTE | ~2023-11-19 | MM_ITS ---
EXAMINATION: MM SCREENING DIGITAL BREAST TOMOSYNTHESIS, BILATERAL CLINICAL INFORMATION: Screening. Asymptomatic. COMPARISON: Mammography: This study is compared with prior exams dating back to 2019. TECHNIQUE: Digital breast tomosynthesis is performed in both the craniocaudal and mediolateral oblique views along with computer-aided detection (CAD). Synthesized 2D images are generated from the tomosynthesis. FINDINGS: The breasts are heterogeneously dense, which may obscure small masses (ACR BI-RADS breast composition Category c). There are no significant masses, abnormal calcifications, or other abnormalities. There are bilateral benign calcifications in each breast. MM/MM tomosynthesis screening BI IMPRESSION: No mammographic evidence of malignancy. ASSESSMENT: BI-RADS BI-RADS 2 - Benign Findings RECOMMENDATION: Routine annual mammography screening. 1 year F/U This examination should not preclude the clinical evaluation of a suspicious palpable abnormality. This patient's information was entered into a reminder system with a target due date for their next mammogram.
== END 2023-11-19 10:07 | disposition home or self-care (01) ==
LOC: HO.MAMMO 10:06
PROVIDERS: Absent Provider Surgery; PCP Student in an Organized Health Care Education/Training Program; Visit Provider Internal Medicine
DX: Z12.31 Encounter for screening mammogram for malignant neoplasm of breast (principal)
CPT/HCPCS: 77063; 77067

== ENCOUNTER 2024-02-14 13:21 | Outpatient (AMB) | payer OTHER, SELFPAY ==
--- NOTE | 2024-02-14 13:19 | MHC.OFFVIS ---
Vital Signs 02/14/24 13:20 Height 5 ft 9 in Weight 163 lb 8 oz BMI 24.1 BP 98/62 Blood Pressure Location Rt brachial Position Sitting Pulse 67 Pulse Source Pulse Oximeter Pulse Oximetry (%) 97 Oxygen Delivery Method Room Air Intake Visit Reasons: dyspnea Allergies No Known Allergies Allergy (Verified 02/14/24 13:25) HPI HPI dyspnea: Details: Ying is a pleasant 58 year old female, former smoker with 20+ pack year history, quit 25+ years ago, with underlying history of anxiety and migraines. She was initially referred for pulmonary evaluation for intermittent chest tightness and dyspnea. PFT revealed FEV1/FVC lower limit of normal, 0.71, and chest CT revealed mild emphysema with micronodules <3 mm. She continues to be quite active exercising frequently and feels her symptoms are quite controlled without any respiratory medications. Today she presents for routine follow up. She denies any visits to urgent care or hospitalizations related to respiratory distress. 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 Reproductive History Menstrual Age of Menarche: 15 Review of Systems Const Denies chills, Denies excessive sweating, Denies fever(s), Denies headache(s) and Denies night sweats Eyes Denies dry eyes, Denies irritation and Denies itchy eyes ENT Reports Normal hearing present, Denies headache(s) and Reports post nasal drip Card Denies chest pain, Denies chest pain at rest, Denies chest pain with activity, Denies claudication, Denies leg edema, Denies orthopnea and Denies paroxysmal nocturnal dyspnea Resp Denies chest congestion, Denies cough, Denies excessive phlegm production, Denies pain on inspiration, Denies pain with cough, Denies stridor and Denies wheezing Musc Denies myalgias Neuro Reports Normal hearing present and Denies headache(s) Endo Denies excessive sweating Faisal/Lymph Denies lymphadenopathy Aller/Immun Denies itchy eyes, Denies seasonal rhinorrhea and Denies wheezing Physical Exam Vital Signs: Last Vital Signs Pulse 67 02/14/24 13:20 BP 98/62 02/14/24 13:20 Pulse Ox 97 02/14/24 13:20 Oxygen Delivery Method Room Air 02/14/24 13:20 BMI result Body Mass Index 24.1 Const General: cooperative, healthy appearing, comfortable, no acute distress, well developed and alert Orientation/consciousness: patient oriented x3 Limitations: no limitations HEENT Head: Yes normal to inspection, Yes normocephalic and Yes atraumatic Ears: hearing grossly normal bilaterally and external ears normal Eyes General: appearance normal, both eyes and all related structures Eyelids: Yes eyelids normal Sclerae: sclerae normal EOM: EOMs intact bilaterally Neck Neck: Yes normal visual inspection and Yes no lymphadenopathy Lymphatic: no lymphadenopathy noted Chest Chest palpation & inspection: normal inspection of the chest Resp Effort & Inspection: normal respiratory effort, able to speak in complete sentences, no audible wheezes, no cough, no stridor, not tachypneic, no tripod positioning and no use of accessory muscles Auscultation: clear to auscultation bilaterally Cardio Jugular venous distension: no JVD Rate: regular rate Rhythm: regular rhythm Skin Other: warm, dry General skin exam: no rashes or lesions noted Neuro General: patient oriented x3 Cranial nerves: Yes Normal hearing present Cognition (Neuro): normal cognition Gait exam (Neuro): Normal gait present Extrem General: Yes normal to inspection, Yes capillary refill normal, Yes no clubbing, cyanosis or edema and Yes no pedal edema Psych Appearance: grossly normal and well kempt Speech and movement: Normal speech and movement present and Clear speech present Affect: normal affect Attitude: cooperative Thought process: Normal thought process present Thought content: Normal thought content present Insight: Good insight present (Psych) Judgement: Good judgement present (Psych) Assessment & Plan Assessment & Plan (1) Dyspnea on exertion: Code(s): R06.09 - Other forms of dyspnea Category: Medical (2) Emphysema of lung: Code(s): J43.9 - Emphysema, unspecified Category: Medical (3) Personal history of tobacco use: Code(s): Z87.891 - Personal history of nicotine dependence Category: Social Hx (4) Multiple pulmonary nodules: Code(s): R91.8 - Other nonspecific abnormal finding of lung field Category: Medical Plan Ying reports good control of respiratory symptoms without the need for inhalers at this time. She cotinues to be quite active with occasional dyspnea with exertion. She is aware if symptoms become less controlled to restart inhalers and call office. Reviewed chest CT which revealed nodules <3 mm in size, with recommendations for 1 year follow up. Will enter this. All questions were answered and patient is in agreement of plan. Will follow up to review chest CT results in August or sooner if needed. Orders: Orders CT chest wo IV con 6 Months R91.8 - Other nonspecific abnormal finding of lung field Coding Level of Care Code Est Pt Level 3 (06458) Diagnoses Dyspnea on exertion R06.09 Emphysema of lung J43.9 Personal history of tobacco use Z87.891 Multiple pulmonary nodules R91.8
[2024-02-14 13:20] VITALS: BP 98/62; PULSE 67; O2SAT 97; BMI 24.1
== END 2024-02-14 15:02 | disposition home or self-care (01) ==
PROVIDERS: PCP Student in an Organized Health Care Education/Training Program; Visit Provider Nurse Practitioner Family
DX: R06.09 Other forms of dyspnea (principal); J43.9 Emphysema, unspecified; Z87.891 Personal history of nicotine dependence; R91.8 Other nonspecific abnormal finding of lung field
CPT/HCPCS: 99213

== ENCOUNTER → 2024-02-14 13:21 | Outpatient (BNVA) | payer OTHER, SELFPAY | PROVIDERS: PCP Student in an Organized Health Care Education/Training Program; Visit Provider Nurse Practitioner Family ==

== ENCOUNTER 2024-08-20 15:35 | Outpatient (REF) | payer OTHER, SELFPAY | END 2024-08-20 15:36 | disposition home or self-care (01) | LOC: HO.CT 15:35 | PROVIDERS: PCP Student in an Organized Health Care Education/Training Program; Visit Provider Nurse Practitioner Family | DX: R91.8 Other nonspecific abnormal finding of lung field (principal) | CPT/HCPCS: 71250 ==

== ENCOUNTER → 2024-08-20 15:37 | Outpatient (BNV) | payer OTHER, SELFPAY | PROVIDERS: PCP Student in an Organized Health Care Education/Training Program; Visit Provider Radiology Diagnostic Radiology | DX: J43.9 Emphysema, unspecified (principal); R91.8 Other nonspecific abnormal finding of lung field | CPT/HCPCS: 71250 ==

== ENCOUNTER 2024-11-13 11:41 | Outpatient (AMB) | payer OTHER, SELFPAY ==
--- NOTE | 2024-11-13 11:48 | A.OFFVIS_ITS ---
Vital Signs 11/13/24 11:53 Height 5 ft 9 in Weight 175 lb BMI 25.8 BP 123/60 Blood Pressure Location Lt brachial Position Sitting Pulse 88 Intake Visit Reasons: yearly breast exam Intake Note: Patient is seen in office for 6 month follow up visit, breast exam. Pt c/o:no concerns has an upcoming mm sched for next Tuesday mm sched:11/19/24 Machine Made Shoe Unit Worker Required: No Cleaner Touch Up Worker: Cleaner Touch Up Worker Present Accompanied by: Self / Same As Patient Allergies No Known Allergies Allergy (Verified 11/13/24 11:55) Medication List - Last Reconciled 11/13/24 by Kamari Ray MD albuterol sulfate 90 mcg/actuation 2 puffs inhalation Q4-6H PRN atorvastatin 20 mg PO BEDTIME budesonide-formoterol 80-4.5 mcg/actuation (Symbicort) 2 puffs inhalation Q12H fluoxetine 20 mg PO DAILY galcanezumab-gnlm (Emgality Pen) mg subcut propranolol 10 mg PO TID sumatriptan succinate 100 mg PO DIRECTED HPI Comments Details: 59-year-old female patient, previous patient of Yesi Williamson, Cherelle, and Antonia Ho found to have extremely dense breast tissue (category D) on prior mammograms. She has a family history of breast cancer including a maternal great aunt with breast cancer. She also has 2 cousins with malignant melanoma. She has undergone previous cyst aspirations but denies any previous breast surgery. Because of her dense breast tissue she previously underwent screening bilateral breast ultrasounds along with the yearly mammograms. Her most recent mammogram dated 11/19/2023 revealed no mammographic evidence of malignancy. Density score was category C. Routine follow-up in 1 year is recommended (BI-RADS 2). She is G5P 3 with 2 miscarriages. She breast fed her children. Menarche was the age of 15, 1st child at the age of 31, menopause at the age of 52. She denies any new breast symptoms in either breast. 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 Reproductive History Menstrual Age of Menarche: 15 Review of Systems Const All systems reviewed & are unremarkable except as noted in HPI and below Reports headache(s) ENT Reports headache(s) Denies nipple discharge Skin/Breast Denies breast swelling, Denies breast skin changes, Denies breast pain, Denies breast mass, Denies change in breast shape and Denies nipple discharge Neuro Reports headache(s) Faisal/Lymph Denies lymphadenopathy Physical Exam Vital Signs: Last Vital Signs Pulse 88 11/13/24 11:53 BP 123/60 11/13/24 11:53 BMI result Body Mass Index 25.8 Const General: no acute distress and well developed Nutritional Appearance: well nourished Orientation/consciousness: patient oriented x3 Limitations: no limitations Neck Neck: Yes no lymphadenopathy and Yes no JVD Chest Other: Left breast: No skin change, no nipple retraction, no nipple discharge, no palpable mass, no enlarged lymph nodes. Right breast: No skin change, no nipple retraction, no nipple discharge, no palpable mass, no enlarged lymph nodes Skin Other: Warm, dry, no rash Neuro General: patient oriented x3 Extrem General: Yes no clubbing, cyanosis or edema Assessment & Plan Assessment & Plan (1) Dense breast tissue on mammogram: Code(s): R92.2 - Inconclusive mammogram Category: Medical Qualifiers: Mammographic dense breast tissue type: extremely dense Laterality: bilateral Qualified Code(s): R92.343 - Mammographic extreme density, bilateral breasts Plan 59-year-old female patient presenting for screening breast examination due to dense breast tissue. She feels well and denies any ongoing breast symptoms. Her last mammogram of 11/19/2023 revealed no suspicious findings either side. Her breasts was determined to be category C density. She was scheduled for a annual mammogram on 11/19/2024 at [facility]. Examination today revealed no suspicious findings in either breast with no palpable mass, skin change, nipple discharge or enlarged lymph node. I recommended continued self examination and follow-up examination in 1 year. We will await the mammogram findings to determine if ultrasound is required. Coding Level of Care Code Est Pt Level 3 (08476) Diagnoses Extremely dense tissue of both breasts on mammography R92.343 Mammographic dense breast tissue type: extremely dense Laterality: bilateral
[2024-11-13 11:53] VITALS: BP 123/60; PULSE 88; BMI 25.8
--- OUTSIDE RECORDS SUMMARY | 2024-11-13 14:11 | XMS_ITS | Patient Health Record ---
Author Organization [facility] Address [address] [place] [address] Care Team Providers Care Medical Center Director Name Role Phone José Peterson M.D. Primary Care Provider Jey Villafuerte Jr Unavailable Reason For Referral Referring Provider First Name José Referring Provider Last Name Varsha Referred Organization [facility] Referred Provider Jey Norris Jr Referred Address [address],[place], [place],[address],[place] Referred Provider Specialty Gastroentero logy General Notes Desirae Ortiz 024 03:30:05 PM EST > requested a bement pilgrim referral for visit with Dr. Norris on 10-15-2024 (said 09-12-2024) [phone], Desirae Ortiz 09/04/2024 03:24:57 PM EST > requested referral again, Desirae Ortiz 09/05/2024 09:29:21 AM EST > José Peterson's office called and stated they are not listed as the pcp and will contact the patient., Desirae Ortiz 09/17/2024 09:35:02 AM EST > NEED NEW LOCATION PHONE, FAX EXT FOR EILAS PETERSON IS NO LONGER WITH [facility], Desirae Ortiz 09/26/2024 08:58:57 AM > Called and spoke with Dr. José Peterson and she does not believe an insurance referral is required since the pt has a ppo plan. Referral Priority Routine Medications Medication SIG (Take, Route, Frequency, Duration) Notes Start Date End Date Status MiraLax (colon prep) 8.3 ounce ((238) grams mixed with Gatorade or Crystal Light orally begin at 5:00 p.m. the day before the procedure for 1 day 01/16/2020 Active SUMAtriptan Succinate Active Multivitamin Active Aspirin Adult Low Dose Active Wellbutrin Active Immunizations Vaccine Route Administration Date Status Comme nts Influenza Unknown 04/29/2019 Administered Problems Problem Type SNOMED Code ICD Code Onset Dates Problem Status W/U Status Risk Notes Problem 221236219 Colon cancer screening (Z12.11) Active confirmed Problem 83329988 Rectal bleeding (K62.5) Active confirmed Encounters Encounter Location Date Provider Diagnosis [facility] [address] [place] [phone] 08/10/2024 Jey Norris Jr Plan Of Treatment Future Test Test Name Order Date COLONOSCOPY 06/03/2016 COLONOSCOPY 01/16/2020 Next Appt Details Provider Name:Jey bustos Jr, 11/26/2024 01:15:00 PM, [address] [place] [address], [address], [place], [address], Insurance Providers Payer Name Payer Address Payer Phone Subscriber Number Group Number Insured Name Patient Relationship to Insured Coverage Start Date Coverage End Date [employer]IM [address] [place] [phone] [id number] VONNIE REYES Self - patient is the insured Medical (General) History Medical History History ICD Code anxiety migraines hematuria colon polyps Hx of kidney stones Surgical History Surgery Date(Month/Year) d&c 20 years ago cystoscopy colonoscopy
--- OUTSIDE RECORDS SUMMARY | 2024-11-13 14:11 | XMS_ITS ---
Author Organization [facility] Address [address] [place] [address] Care Team Providers Care Unified Communications Architect Name Role Phone José Maddox M.D. Primary Care Provider Jey Villafuerte Jr REASON FOR VISIT rectal bleeding Encounters Encounter Location Date Provider Diagnosis [facility] [address] [place] [address] 08/10/2024 Jey Norris Jr Plan Of Treatment Next Appt Details Provider Name:Jey bustos Jr, 11/26/2024 01:15:00 PM, [address], [address], [place], [address], Progress Notes * VONNIE REYESDOB:1965 (59 yo F)Acc No.[id number]:08/10/2024 Patient:?VONNIE REYES :1965???Age:59 Y???Sex:Female Address[address] [place] [address] * true * Date:? Generated for Nimai minerva/Lewis/eTransmitting on:?11/13/2024 02:11 PM EDT
--- OUTSIDE RECORDS SUMMARY | 2024-11-13 14:11 | XMS_ITS | Data Portability ---
Author Organization [facility], [facility] Address [address] [place] [address] Care Team Providers Care Sweep Press Operator Name Role Phone AUYSH CLAIRE Primary Care Provider LORRIEISABELLAAYLEEN Primary Care Provider Assessment No assessment recorded. Plan of Treatment Reminders Order Date Submit Date Provider Last Modified By Organization Details Last Modified Time Details Appointments None recorded. Lab culture, urine 2014 [address] [facility], [address] [place], [address], 5 10:08:09 Referral neurologist referral - 50 yo F w/recent event of memory loss preceded by a 30 seconds of nausea, difficulty w/name recognition , took approximate ly 3 hours to feel clear . HX of migraines // pt. has an appt. 07/16/2015 @ 12:30 pm 2014 015 ESDRAS Cunningham MD, [address] [place] [address], [address], 6 05:03:25 Procedures None recorded. Surgeries None recorded. Imaging None recorded. Medication Orders None recorded. Patient TargetsNo targets recorded. Patient Instructions Encounter Date Encounter Id Patient Instructions Last Modified By Organization Details Last Modified Time 08/16/2013 [id number] colon polyps: care instructions [email or web address] Not available 08/16/2013 15:10:22 Well Visit, Ages 18 to 65: Care Instructions [email or web address] Not available 08/16/2013 15:10:22 My Health To Do List As we discussed and agreed upon at your visit please work on the following: skillip Not available 08/19/2013 21:08:25 06/30/2015 [id number] 25 min visit: 50 % of time spent providing counseling & instruction. [email or web address] Not available 07/04/2015 10:08:09 Reason for Referral Neurologist Referral for Tem porary loss of memory 50 yo F w/recent event of memory loss preceded by a 30 seconds of nausea, difficulty w/name recognition, took approximately 3 hours to feel clear . HX of migraines // pt. has an appt. 07/16/2015 @ 12:30 pm Referring Physician: Mireille Honeycutt, Family Medicine, Encounter Date: 06/30/2015 Results Created Date Observation Date Name Description Value Unit Range Abnormal Flag Note LastModifiedBy Organization Detail LastModifiedTime 06/30/20 15 07/02/2015 cultu re, urine culture, urine, routine CULTU RE, URINE , ROUTI NE MICRO NUMBE R: [id number] TEST STATU S: FINAL SPECI MEN SOURC E: URINE SPECI MEN QUALI TY: ADEQU ATE RESUL T: No Growt h Not Available [facility] [address], [address], 07/02/2015 08:26:54 06/13/20 14 06/10/2014 imagi ng/di agnos tic resul t No observ ation record ed. [facility] [address] [place] [address] [place], [address] 06/13/2014 19:48:11 03/10/20 15 03/05/2015 imagi ng/di agnos tic resul t No observ ation record ed. [facility] ([facility]) [address] [place] [address] [place], [address], 03/13/2015 21:14:34 03/10/20 15 1965 imagi ng/di agnos tic resul t No observ ation record ed. [facility] ([facility]) [address] [place] [address] [place], [address], 03/13/2015 21:14:34 Result Notes None recorded. Procedures Surgical History None recorded. Imaging Results Imaging Date Name Status LastModified by [facility] Details LastModified Time 06/10/2014 imaging/diag nostic result completed [facility] [address] [place] [address] [place], [address] 06/13/2014 19:48:11 03/05/2015 imaging/diag nostic result completed [facility] ([facility]) [address] [place] [address] [place], [address], 03/13/2015 21:14:34 1965 imaging/diag nostic result completed [facility] [address] [place] [address] [place], [address], 03/13/2015 21:14:34 Procedure Notes None recorded. Medical Equipment None Reported. Allergies No known drug allergies Medications Name Sig Start Date Stop Date Status Note LastModified by Organization Details LastModified Time malathion 0.5 % lotion APPLY BY TOPICAL ROUTE TO DRY HAIR AND RUB GENTLY UNTIL THE SCALP IS THOROUGHLY MOISTENED AND LET DRY NATURALLY; SHAMPOO AFTER 8-12 HOURS active Not Available Not Available No t Available benzyl alcohol (bulk) liquid Take by topical route as directed 2013 active Not Available Not Available Not Avai lable Ulesfia 5 % lotion active Not Available Not Available Not Available Fluvirin (PF ) 45 mcg (15 mcg x3)/0.5 mL intramuscula r syringe inject 0.5 milliliter intramuscul chuck active Not Available Not Available No t Available Afluria (PF) 45 mcg (15 mcg x 3)/0.5 mL IM syringe inject 0.5 milliliter intramuscul chuck active Not Available Not Available No t Available Vitals Date Recorded Body weight Systolic blood pressure Diastolic blood pressure Provider Name and Address Organization Details Last Updated DateTime 08/16/2013 81048.4976 74 g 110 mm[Hg] 72 mm[Hg] Kitty Springer MA [facility] 08/16/2013 12:05:21 Date Recorded Body mass index (BMI) Body height Provider Name and Address Organization Details Last Updated DateTime 08/16/2013 23.7 kg/m2 175.26 cm Ayush Claire MD [address] [place] [address], [phone], [facility] 08/16/2013 12:08:40 Date Recorded Body weight Body height Body mass index (BMI) Heart rate Systolic blood pressure Diastolic blood pressure Provider Name and Address Organization Details Last Updated DateTime 5 51375.7 [address] g 175.26 cm 23.2 kg/m2 66 /min 130 mm[Hg] 60 mm[Hg] Nevaeh Cota LPN [facility] 5 14:00:41 Social History Question Answer Notes LastModified by Organizat ion Details LastModified Time Tobacco Smoking Status Former Smoker smoked from age [age]. [id number] [facility] 08/16/2013 12:05:22 What Is Your Level Of Alcohol Consumption? None Information not available 08/16/2013 Do You Wear A Helmet When Biking? Yes Information not available 08/16/2013 What Is Your Level Of Caffeine Consumption? Moderate Information not available 08/16/2013 How Much Tobacco Do You Chew? None Information not available 08/16/2013 What Type Of Diet Are You Following? REGULAR Information not available 08/16/2013 Which Illicit Or Recreational Drugs Have You Used? 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 0 Information not available 08/16/2013 Are There Any Guns Present In Your Home? No Information not available 08/16/2013 Live Alone Or With Others? With Others Information not available 08/16/2013 Patient Has Health Care Proxy Signed And In Chart No Information not available 08/16/2013 Marital Status Rory Triana Information not available 08/16/2013 Mosquito Repellent Used Routinely Yes Information not available 08/16/2013 How Many Children Do You Have? 3 Born: Brianna 1997; Flora 2000; [id number] Information not available 08/16/2013 Seat Belts Used Routinely Yes Information not available 08/16/2013 Are You Sexually Active? Yes Information not available 08/16/2013 Smoke Alarm In Home Yes Information not available 08/16/2013 General Stress Level Medium Information not available 08/16/2013 Do You Use Sunscreen Routinely? Yes Information not available 08/16/2013 Sex: Unknown Functional Status None recorded. Mental Status None recorded. Family History Relationship Description Onset Age of this Age Resolved Age Notes LastModified by Organization Details LastModified Time Father Heart disease skillip Not available 2012 12:24:40 Father Hypertensive disorder skillip Not available 2012 12:24:40 Father Hyperlipidem ia skillip Not available 2012 12:24:40 Father Diabetes mellitus 12 57 skillip Not available 2012 12:24:40 Mother Chronic obstructive pulmonary disease skillip Not available 2012 12:24:40 Paternal Uncle Myocardial infarction 55 skillip Not available 08/16 12:24:40 Maternal Grandfather Myocardial infarction 65 skillip Not available 08/16 12:24:40 Notes:no early CAD x father; daughter with Type I DM dx age 3; no HTN known, no chol known; no breast or colon cancer Medical History Condition Response Migraine Headaches Y Gynecological History Statement/Question Response Current Control Method Partner Vas ectomy Obstetrics History GPAL:G 0 P 0 0 0 0 Immunizations Vaccine Type Date Status Note Provider Nam e and Address Organization Details Recorded Time Influenza, split virus, trivalent, PF 06/12/2013 completed Kitty Springer MA [facility] 08/16/2013 12:05:21 Past Encounters Encounter ID Performer Location Encounter Start Date Encounter Closed Date Diagnosis/Indication Diagnosis SNOMED-CT Code Diagnosis ICD10 Code Diagnosis Note [id number] Nava LING, [facility], [address] [place] [address] 08/16/2013 11:15:15 08/17/2013 10:34:42 Adult health examination 200412942 see Risk Assessment and Lifestyle Change Counseling section above; wants hepatitis checked x 1; UTD on prevention per her history. will request records to confirm. Counseling [id number] Polyp of colon 60283434 [id number] JASKARAN Edgar , [facility], [address] [place] [address] 06/30/2015 13:35:41 06/30/2015 14:59:28 Temporary loss of memory 667755591 R41.3 Episode of impaired memory 3 d. ago as described in HPI, referral to Neurology. Case discussed w/Dr. Dominguez. Advised if event should reoccur, call 911. Agrees w/plan. Increased frequency of urination 965632125 R35.0 Health Concerns Section Related Observation LastModified by Organization Detai ls LastModified Time None Recorded Concern Status LastModified by Organization Details LastModified Time None Recorded Advance Directives Directive None Recorded Payers Encounter Date Sequence Insurance Name Policy Number Policy Grace Covered Member ID Grace Member ID Guarantor Name 08/16/2013 1 [facility] - NAVIG[employer] (PPO) [id number] Ying Triana [id number] Ying Triana 06/30/2015 1 [facility] - NAVIGATOR (POS) [id number] Ying Triana [id number] Ying Triana Notes Date Note Type Note Provider Name and Address Organization Details Recorded Time 06/30/2015 text/html Seen for episode as described on Tuesday afternoon: felt a wave of nausea X30 seconds, drove to a soccer game, felt foggy, could not remember a date for her daughter's derm. appt, this made her feel like she was not herself, had diffciulty retreiving names at the soccer game-names of people she knew, took about 2 hours to feel like she was clearing, 3 hours to feel totally clear. Then felt exhausted. Now feels more anxious regarding the event, still having word jumbles . She is very busy-2 jobs, activities w/family. Also has had some increased urinary leakage over the past few days. Started having urinary frequency 2 weeks ago, up often @ night. JASKARAN Edgar [address] [place] [address], [phone], [facility] 07/04/2015 10:08:22 OBGyn Episode No OBEpisode recorded.
--- OUTSIDE RECORDS SUMMARY | 2024-11-13 14:12 | XMS_ITS | Data Portability ---
Author Organization [facility] Home Service Address [address] [place] [address] Assessment Encounter Date Assessment Date Assessment LastModified by Organization Details LastModified Time 11/04/2020 11/04/2020 Patient agreed and verbally consents to this audio and video Telehealth appt via a secure [place] [id number] [place] [id number] (SASH MAKER) MDM MODERATE MUST MEET 2 OUT OF 3 ELEMENTS: PROBLEMS, DATA OR RISK ELEMENT 1: PROBLEMS ADDRESSED OR OR OR 1 ACUTE ILLNESS W/SYMPTOMS OR ELEMENT 2: DATA MUST MEET 1 OF 3 CATEGORIES CATEGORY 1: REVIEW OF PRIOR EXTERNAL NOTES, REVIEW OF RESULTS, ORDERING OF EACH TEST, ASSESSMENT REQUIRING INDEPENDENT HISTORIAN OR CATEGORY 2: OR CATEGORY 3: ELEMENT 3: RISK RISK OF COMPLICATIONS AND/OR MORBIDITY OR MORTALITY OF PATIENT MANAGEMENT PROVIDER MUST THOROUGHLY DOCUMENT EACH ELEMENT THAT IS COVERED [email or web address] Not available 11/04/2020 16:22:31 Plan of Treatment Reminders Order Date Submit Date Provider Last Modified By Organization Details Last Modified Time Details Appointments None recorded. Lab CMP, serum or plasma 2021 [email or web address] [facility], [address] [place] [address], [address], 2 10:32:36 CBC w/ auto diff 2021 [facility], [address] [place] [address], [address], 2 12:10:40 lipid panel, blood 2021 [facility], [address] [place] [address], [address], 2 12:10:40 vitamin D, 25-hydroxy , total, serum 2021 022 [email or web address] [facility], [address] [place] [address], [address], 2 10:32:36 TSH, serum or plasma 2021 022 [facility], [address] [place] [address], [address], 12:10:39 vitamin B12, serum 2021 [facility], [address] [place] [address], [address], 12:10:40 HbA1c (hemoglobi n A1c), blood 2021 022 [facility], [address] [place] [address], [address], 12:10:39 CMP, serum or plasma 2020 021 [email or web address] [facility], [address] [place] [address], [address], 08:13:27 lipid panel, blood 2020 021 [facility], [address] [place] [address], [address], 15:35:17 CBC w/ auto diff 2020 021 [facility], [address] [place] [address], [address], 15:35:17 vitamin D, 25-hydroxy , total, serum 2020 021 [email or web address] [facility], [address] [place] [address], [address], 1 08:13:27 TSH, serum or plasma 2020 021 [facility], [address] [place] [address], [address], 15:35:17 Referral None recorded. Procedures None recorded. Surgeries None recorded. Imaging CT, chest, w/o contrast 2022 023 [facility], [address] [place] [address], [address], 3 09:22:29 PFT, complete 2022 023 [facility], [address] [place] [address], [address], 3 08:39:35 bone density 2021 022 [email or web address] [facility], [address] [place] [address], [address], 2 08:05:53 Medication Orders montelukas t 10 mg tablet 2020 021 [id number], [address] [place] [address], [id number], 11:20:02 Patient TargetsNo targets recorded. Patient Instructions Encounter Date Encounter Id Patient Instructions Last Modified By Organization Details Last Modified Time 11/25/2020 [id number] kidney stone: care instructions Not available 11/25/2020 15:32:44 Patient Health Questionnaire-9* Not available 11/25/2020 15:32:44 Reason for Referral None Reported. Results Created Date Observation Date Name Description Value Unit Range Abnormal Flag Note LastModifiedBy Organization Detail LastModifiedTime 10/10/19 21 10/10/2020 XR, chest , 2 view No observ ation record ed. [facility] [address] [place] [address] [place], [address], 10/10/2020 14:49:33 10/15/1910/15/2020 CT, sinus es, w/o contr ast No observ ation record ed. [facility] [address], [place], [id number], 10/15/2020 11:52:12 11/06/19 22 11/04/2021 MAMMO , scree kaye, digit al, bilat eral No observ ation record ed. [email or web address] [place], [address], 11/06/2021 09:30:31 05/20/20 22 05/20/2022 US, marisol bernstein, bilat eral No observ ation record ed. [address] [place], [address], 05/21/2022 08:20:10 05/20/20 22 05/20/2022 US, marisol bernstein bilat eral No observ ation record ed. [address] [place], [address], 05/21/2022 08:20:31 11/16/19 23 11/12/2022 MAMMO , samirae kaye, digit al, bilat eral No observ ation record ed. [email or web address] [address] [place], [address], 11/15/2022 09:44:40 06/13/2006/13/2023 MAMMO , samirae kaye, digit al, bilat eral No observ ation record ed. [email or web address] [address] [place], [address], 06/14/2023 09:37:10 06/13/20 06/13/2023 MAMMO , scree kaye, digit al, bilat eral No observ ation record ed. [email or web address] [address] [place], [address], 06/14/2023 09:41:03 07/12/20 23 07/01/2023 PFT, compl ete No observ ation record ed. [facility] (Medical Records) [address] [place], [address], 07/12/2023 08:26:25 07/15/20 23 07/13/2023 XR, chest , 2 view No observ ation record ed. [facility] (Medical Records) [address] [place], [address], 07/15/2023 08:44:26 09/08/19 24 08/31/2023 CT, chest , w/o contr ast No observ ation record ed. [email or web address] [facility] (Medical Records) [address] [place], [address], 09/09/2023 15:52:29 12/06/19 24 11/19/2023 MAMMO , scree kaye, digit al, bilat eral No observ ation record ed. [address] [place], [address], 12/07/2023 08:58:22 Result Notes None recorded. Problems Name Problem SNOMED Code Status Onset Date Resolution Date Notes Provider Name and Address Organization Details Recorded Time Calculus of kidney and ureter 066262506 Active 2018 Not Available [facility] 3 15:49:35 Mass of chest wall 458445799 Active 2018 Not Available [facility] 3 15:49:35 Disorder of vitamin B12 101124005 Active 2022 Not Available [facility] 3 15:49:35 Hyperchol esterolem ia 29699496 Active 2022 Not Available [facility] 3 15:49:35 Dyspnea 273535349 Active 2022 DAGO LOPEZ [address] [place], [address], [facility] 3 11:06:31 Migraine 95246422 Active 2017 Not Available [facility] 3 15:49:35 Hemorrhoi ds 37407845 Active 2017 Not Available [facility] 3 15:49:35 Tinnitus 85974642 Active 2017 Not Available [facility] 3 15:49:35 Anxiety 02795566 Active 2017 Not Available [facility] 3 15:49:35 Fibrocyst ic disease of breast 51430376 Active 2017 Q6 months US, mammo yearly Not Available [facility] 3 15:49:35 Polyp of colon 57519990 Active 2017 Not Available [facility] 3 15:49:35 Problem Notes None recorded. Procedures Surgical History Date Name Laterality Status Provider Name and Address Organization Details Recorded Time 09/01/19 16 Colonoscopy completed Diana Nielson NP, [address] [place] [address], [address], [facility] 02/21/2018 14:59:53 Dilation and curettage completed Diana Nielson NP, [address] [place] [address], [address], [facility] 02/21/2018 14:59:35 Imaging Results Imaging Date Name Status LastModified by Organiz ation Details LastModified Time 10/10/2020 XR, chest, 2 view completed [facility] [address] [place] [address] [place], [address], 10/10/2020 14:49:33 10/15/2020 CT, sinuses, w/o contrast completed [facility] [address] [facility], [place], [address], 10/15/2020 11:52:12 11/04/2021 MAMMO, screening, digital, bilateral completed [email or web address] [address] [place], [address], 11/06/2021 09:30:31 05/20/2022 US, breast, bilateral completed [email or web address] [address] [place], [address], 05/21/2022 08:20:10 05/20/2022 US, breast, bilateral [facility] [address] [place], [address], 05/21/2022 08:20:31 11/12/2022 MAMMO, screening, digital, bilateral completed [email or web address] [address] [place], [address], 11/15/2022 09:44:40 06/13/2023 MAMMO, screening, digital, bilateral completed [email or web address] [address] [place], [address], 06/14/2023 09:37:10 06/13/2023 MAMMO, screening, digital, bilateral completed [email or web address] [address] [place], [address], 06/14/2023 09:41:03 07/01/2023 PFT, complete completed [facility] (Medical Records) [address] [facility] [place], [address], 07/12/2023 08:26:25 07/13/2023 XR, chest, 2 view completed [facility] (Medical Records) [address] [place], [address], 07/15/2023 08:44:26 08/31/2023 CT, chest, w/o contrast completed [email or web address] [facility] (Medical Records) [address] [facility], [place], [address], 09/09/2023 15:52:29 11/19/2023 MAMMO, screening, digital, bilateral completed [email or web address] [facility] [address] [place], [address], 12/07/2023 08:58:22 Procedure Notes None recorded. Medical Equipment None Reported. Allergies Allergen ID Allergen Name Allergen Category Reaction Reaction Severity Criticality Documentation Date Start Date Code Code System Note Provider Name and Address Organization Details Recorded Time 3339 MILK OF MAGNDAPHNIE medicatio n Not available Not available Not available 03/30/2019 63829 9 RxNorm Tami mcclelland [place] - [facility] 9 11:50:36 Medications Name Sig Start Date Stop Date Status Note LastModified by Organization Details LastModified Time atorvastati n 20 mg tablet TAKE 1 TABLET BY MOUTH EVERY DAY active Not Available Not Available No t Available azithromyci n 250 mg tablet TAKE 2 TABLETS (500 MG) BY ORAL ROUTE ONCE DAILY FOR 1 DAY THEN 1 TABLET (250 MG) BY ORAL ROUTE ONCE DAILY FOR 4 DAYS 06/15 completed Not Available Not Available Not Available sumatriptan 100 mg tablet PRN for Migraine headaches active Not Available Not Available No t Available fluorouraci l 5 % topical cream 11/25 completed Not Available Not Available Not Available sumatriptan 50 mg tablet 2021 active Not Available Not Available Not Avai lable ciprofloxac in 500 mg tablet TAKE 1 TABLET BY MOUTH EVERY 12 HOURS FOR 10 DAYS 11/04 completed Not Available Not Available Not Available cephalexin 500 mg capsule Take 1 capsule every 8 hours by oral route. 02/12 completed Not Available Not Available Not Available oseltamivir 75 mg capsule TK ONE C PO QD 11/25 completed Not Available Not Available Not Available metronidazo le 0.75 % topical cream 09/04 completed Not Available Not Available Not Available montelukast 10 mg tablet TAKE 1 TABLET BY MOUTH EVERY DAY 05/13 completed Not Available Not Available Not Available methylpredn isolone 4 mg tablets in a dose pack FOLLOW PACKAGE DIRECTION S 06/15 completed Not Available Not Available Not Available amoxicillin 875 mg-sherrilauren m clavulanate 125 mg tablet TAKE 1 TABLET BY MOUTH EVERY 12 HOURS FOR 7 DAYS 11/04 completed Not Available Not Available Not Available bupropion HCl XL 150 mg 24 hr tablet, extended release TAKE 1 TABLET BY MOUTH EVERY DAY 05/11 completed Not Available Not Available Not Available Soolantra 1 % topical cream 02/12 completed Not Available Not Available Not Available naloxone 4 mg/actuatio n nasal spray CALL 911. SPR CONTENTS OF ONE SPRAYER (0.1ML) INTO ONE NOSTRIL. REPEAT IN 2-3 MIN IF SYMPTOMS OF OPIOID EMERGENCY PERSIST, ALTERNATE NOSTRILS active Not Available Not Available No t Available Targadox 50 mg tablet 02/12 completed Not Available Not Available Not Available Vitals Date Recorded Body height Body mass index (BMI) Body weight Heart rate Oxygen saturation Oxygen saturation in Arterial blood by Pulse oximetry Systolic blood pressure Diastolic blood pressure Provider Name and Address Organization Details Last Updated DateTime 1 174.63 cm 24.1 kg/m2 06480.6 g 79 /min 98 % 98 % 110 mm[Hg] 60 mm[Hg] Lori Avendano [facility] 1 15:06:35 Date Recorded Body height Heart rate Oxygen saturation Oxygen saturation in Arterial blood by Pulse oximetry Systolic blood pressure Diastolic blood pressure Provider Name and Address Organization Details Last Updated DateTime 1 174.63 cm 72 /min 98 % 98 % 122 mm[Hg] 76 mm[Hg] DAGO LOPEZ [address] [place], [address] [place] [address] Internal [facility] 1 11:21:31 Date Recorded Body height Body mass index (BMI) Body weight Heart rate Oxygen saturation Oxygen saturation in Arterial blood by Pulse oximetry Systolic blood pressure Diastolic blood pressure Provider Name and Address Organization Details Last Updated DateTime 2 174.63 cm 25.3 kg/m2 44809.0 6 g 93 /min 98 % 98 % 124 mm[Hg] 78 mm[Hg] Ying Salinas [facility] 2 11:37:27 Date Recorded Body height Body mass index (BMI) Body weight Heart rate Oxygen saturation Oxygen saturation in Arterial blood by Pulse oximetry Systolic blood pressure Diastolic blood pressure Provider Name and Address Organization Details Last Updated DateTime 3 172.72 cm 25.8 kg/m2 76035.7 g 89 /min 98 % 98 % 122 mm[Hg] 80 mm[Hg] Ashley Realgatito [facility] 3 10:39:53 Social History Question Answer Notes LastModified by Organizat ion Details LastModified Time Tobacco Smoking Status Former Smoker Not Available [facility] 07/01/2020 03:36:24 What Was The Date Of Your Most Recent Tobacco Screening? 06/15/2023 [email or web address] Information not available 06/15/2023 How Many Years Have You Smoked Tobacco? 11 [id number] Information not available 07/01/2020 Do You Or Have You Ever Used Any Other Forms Of Tobacco Or Nicotine? No [email or web address] Information not available 06/15/2023 Sex: Unknown Functional Status None recorded. Mental Status None recorded. Family History Relationship Description Onset Age of this Age Resolved Age Notes LastModified by Organization Details LastModified Time Mother Congestive heart failure COPD patt Not available 2017 14:59:02 Father Peripheral vascular disease 57 IDDM, CAD patt Not available 02/21/2018 14:58:52 Daughter Type 2 diabetes mellitus patt Not available 2017 11:10:11 Medical History Condition Response Coronary Artery Disease N Gout N Kidney Stones Y Blood Diseases N Hyperthyroidism N Breast Cancer N Blood Transfusion N Hypothyroidism N COPD N Depression Y Lung Disease N Defects or Inherited Disease N Difficulty Swallowing N Anesthesia Complications Y Anxiety Disorder Y Muscle, Joint, or Bone Problems N Obesity N Arthritis Polyps Y Infertility N Mental Disorder N Stroke N Bladder or Kidney Problems N High Cholesterol N Liver Disease N Headaches Y Kidney Disease N Allergies/Hayfever N Heart Problems N Hospitalizations N Thyroid Problems N Eating Disorder N Anemia N Constipation Y Mental Illness N Diabetes N Ovarian Cancer N Seizures/Epilepsy N Congestive Heart Failure (CHF) N Abuse/Domestic Violence N Hepatitis N Heart Disease N Pulmonary Embolism N Chronic Ear Infections N Hypertension N Chicken Pox Y Autism Spectrum Disorder (ASD) N Gynecological History Statement/Question Response Age at Menarche 15 Age at First Child 31 Obstetrics History GPAL:G 6 P 3 0 0 0 Type Value Full Term 3 Total 6 Immunizations Vaccine Type Date Status Note Provider Nam e and Address Organization Details Recorded Time COVID-19, mRNA, LNP-S, PF, 30 mcg/0.3 mL dose 1 completed Jeannette Milton [facility] 05/11/2021 15:38:45 Influenza, split virus, quadrivalent, preservative 9 completed Colt Hernandez [address], [address] 07/28/2019 09:31:01 Influenza, split virus, quadrivalent, preservative 0 completed [facility] 11/25/2020 15:05:49 Past Encounters Encounter ID Performer Location Encounter Start Date Encounter Closed Date Diagnosis/Indication Diagnosis SNOMED-CT Code Diagnosis ICD10 Code Diagnosis Note [id number] Diana Nielson NP, [address] [address] 02/22/2018 10:16:48 02/22/2018 16:01:52 Adult health examination 090541354 Z00.00 Depressive disorder 3548 9007 F32.89 stable Fibrocysti c disease of breast 19424140 N60.19 up to date with Dr. Humberto Key History of calculus of kidney 889037454 Z87.442 Perimenopausal state 547 7309846 24782 Z78.0 continue healthy diet/exerc ise [id number] Diana Nielson NP, [address] [place] [address] 05/10/2018 11:44:27 05/10/2018 14:05:47 Cyst of skin 077751257 L72.8 [id number] Colt Hernandez [facility] [address] [address] 02/12/2019 10:25:22 02/12/2019 10:57:33 Calculus of kidney and ureter 849535697 N20.2 stable and is not having any symptoms Mass of chest wall 38924 4000 R22.2 reassuranc e that this is a superficia l vein and of no consequenc e Adult heal th examination 968588134 Z00.00 [id number] Colt Hernandez DO [facility] [address] [facility] [address] [address] 09/04/2019 10:00:49 09/04/2019 10:31:17 Adult health examination 023469309 Z00.00 Doing well Will recheck CBC Tuesday Hemorrhoids 07890504 K64 .9 Having flair currently but controllin g it well Anxiety 72441466 F41.9 Very well controlled with current meds Mass of chest wall 14098 4000 R22.2 reassuranc e that this is a superficia l vein and of no consequenc e Has resolved now [id number] DAGO LOPEZ [facility] [address] [facility] [address] [address] 10/10/2020 09:10:33 10/10/2020 10:27:23 Ex-smoker 5801392 Z87.891 Chronic sinusitis 272282 00 J32.9 [id number] DAGO LOPEZ [facility] [address] [facility] [address] [address] 11/04/2020 08:50:20 11/05/2020 09:16:06 Allergic rhinitis 06618084 J30.9 will trial patient on singulair and fu in a week Nasal congestion 4198100 0 R09.81 will still follow up with ENT to exclude all other possible causes of ongoing congestion [id number] Colt Hernandez DO [facility] [address] [facility] [address] [address] 11/25/2020 14:57:26 11/25/2020 16:53:53 Active or passive immunization 166730355 Z23 covid up to date Adult heal th examination 078337460 Z00.00 doing great needs fbw Anxiety 26844684 F41.9 stable Calculus o f kidney and ureter 966825649 N20.2 stable and is not having any symptoms recent eval all good [id number] DAGO LOPEZ [facility] [address] [facility] [address],[place] [address] 05/13/2021 11:18:19 05/13/2021 15:48:56 Bilateral pinguecula of eyes 8471816188 35128 H11.153 will call for referral if needed [id number] Colt Hernandez DO [facility] [address] [facility] [address], mariangel [place] [address] 05/11/2022 11:25:49 05/11/2022 12:57:33 Active or passive immunization 158150172 Z23 covid up to date Adult heal examination 238470659 Z00.00 doing great needs fbw Migraine 68040181 G43.90 9 [id number] DAGO LOPEZ [facility] [address] [facility] [address], [place] [address] 06/15/2023 10:28:17 06/15/2023 11:27:56 Dyspnea 208300464 R06.02 agreed to work uphx of smokingcou ld be COPD or new asthma Adult heal th examination 579600894 Z00.00 BP is excellent Health Concerns Section Related Observation LastModified by Organization Detai ls LastModified Time None Recorded Concern Status LastModified by Organization Details LastModified Time None Recorded Advance Directives Directive None Recorded Payers Encounter Date Sequence Insurance Name Policy Number Policy Grace Covered Member ID Grace Member ID Guarantor Name 11/04/2020 1 [facility] (POS) [id number] Ying Mcarthur [id number] Ying Mcarthur 11/25/2020 1 [facility] ([place]) [id number] Ying Mcarthur [id number] Ying Gomez Mcarthur 05/13/2021 1 [facility] (POS) [id number] Ying Gomez Mcarthur [id number] Ying Gomez Mcarthur 05/11/2022 1 [facility] (POS) [id number] Ying Mcarthur [id number] Ying Gomez Mcarthur 06/15/2023 1 [facility] Ying Mcarthur [id number] Ying Mcarthur Notes Date Note Type Note Provider Name and Address Organization Details Recorded Time text/html c/o congestion the patient presents to the office today via telehealth for ongoing congestion and increased mucus production patient returns today as she had more information to give me about her symptoms the patient reports that she noticed that the congestion started when she moved to her new house (still working on old house for closing, no symptoms there) the patient states that house smells like mildew and uses radiators for heating discussed with patient, and her time using the fire place, that these could have caused allergies and no necessarily an infection the patient has used anti-histamines with some benefit, but does not continue to use them will trial her on singulair and fu next week to see how she is doing will fu with ENT as well DAGO LOPEZ [address] [place], [address], [facility] 11/04/2020 16:22:45 1 text/html Annual WellnessReported bypatient.Diet and Nutrition:healthy diet Fracture Risk:no history of fractures; no recent explained fracture; no sudden unexplained fractures; no previous musculoskeletal injuries Physical Activity:exercises on a regular basis; recent increase in physical activity; good physical condition Additional Lifestyle Factors:no tobacco use; no alcohol intake; stopped drinking alcohol Depression Risk:never feels sad, empty, or tearful; no loss of interest in activities; no significant changes in weight; no sleep disturbances or insomnia; no agitation; no loss of energy; no feelings of worthlessness or guilt; no thoughts of suicide; no history of depression; no history of mood disorders Hearing:no loss of hearing Vision:no vision problems here for rechk has had ongoing issues with chronic sinsusitis seeind dr platt still having prob with discharge black color Colt Hernandez DO [address] [place], [address], [facility] 11/25/2020 15:34:36 1 text/html c/o lesion in the eye the patient reports a lesion of the left eyeyellow triangular tissue of the eye in the inner corner discussed with patient that this is a pingueculadiscussed with patient this can be cause be age, sun exposure, environmental allergens like dust and wind as well benign, nothing needs to be done unless the become uncomfortablecan use eye drops for irritation suggested use of sun glasses as well DAGO LOPEZ [address] [place], [address], [facility] 05/13/2021 11:38:41 2 text/html Annual WellnessReported bypatient.Diet and Nutrition:healthy diet Fracture Risk:no history of fractures; no recent explained fracture; no sudden unexplained fractures; no previous musculoskeletal injuries Physical Activity:exercises on a regular basis; recent increase in physical activity; good physical condition Additional Lifestyle Factors:no tobacco use; no alcohol intake; stopped drinking alcohol Depression Risk:never feels sad, empty, or tearful; no loss of interest in activities; no significant changes in weight; no sleep disturbances or insomnia; no agitation; no loss of energy; no feelings of worthlessness or guilt; no thoughts of suicide; no history of depression; no history of mood disorders Hearing:no loss of hearing Vision:no vision problemsNotes:jada had a small dime of vaginal bleed recently saw nurse obgyn and US and told her that all was normal so no further need for eval relates having her migraine like Colt Hernandez DO [address] [place], [address], [facility] Medicine 05/11/2022 12:03:35 3 text/html Annual WellnessReported bypatient.Diet and Nutrition:healthy diet; discussed vitamin and supplement use; discussed portion control; discussed maintaining calcium balance; discussed diet improvement Fracture Risk:no history of fractures; no recent explained fracture; no sudden unexplained fractures; no previous musculoskeletal injuries Physical Activity:exercises on a regular basis; recent increase in physical activity; good physical condition Additional Lifestyle Factors:no tobacco use; no alcohol intake; stopped drinking alcohol Depression Risk:never feels sad, empty, or tearful; no loss of interest in activities; no significant changes in weight; no sleep disturbances or insomnia; no agitation; no loss of energy; no feelings of worthlessness or guilt; no thoughts of suicide; no history of depression; no history of mood disorders Hearing:no loss of hearing Vision:no vision problemsNotes:jada had a small dime of vaginal bleed recently saw nurse obgyn and US and told her that all was normal so no further need for eval migraines are worse, her MRI and carotids scanned which were negativethe patient is doing okay with the [facility], could be worsened due to recent covid check nurse obgyn: stable, recent papderm: stableneuro: stable doing really well smoked heavily until 30 (one to two packs per day) DAGO LOPEZ [address] [place] [address], [place], [address], [facility] 06/15/2023 11:19:19 OBGyn Episode No OBEpisode recorded.
== END 2024-11-13 12:07 | disposition home or self-care (01) ==
LOC: HO.HGS 11:42
PROVIDERS: PCP Student in an Organized Health Care Education/Training Program; Visit Provider Surgery
DX: R92.343 Mammographic extreme density, bilateral breasts (principal)
CPT/HCPCS: 99213

== ENCOUNTER → 2024-11-13 11:41 | Outpatient (BNVA) | payer OTHER, SELFPAY | PROVIDERS: PCP Student in an Organized Health Care Education/Training Program; Visit Provider Surgery ==

== ENCOUNTER 2024-11-19 13:42 | Outpatient (REF) | payer OTHER, SELFPAY | END 2024-11-19 13:43 | disposition home or self-care (01) | LOC: HO.MAMMO 13:42 | PROVIDERS: PCP Student in an Organized Health Care Education/Training Program; Visit Provider Student in an Organized Health Care Education/Training Program | DX: Z12.31 Encounter for screening mammogram for malignant neoplasm of breast (principal) | CPT/HCPCS: 77063; 77067 ==

== ENCOUNTER → 2024-11-19 13:45 | Outpatient (BNV) | payer OTHER, SELFPAY | PROVIDERS: PCP Student in an Organized Health Care Education/Training Program; Visit Provider Internal Medicine | DX: Z12.31 Encounter for screening mammogram for malignant neoplasm of breast (principal) | CPT/HCPCS: 77063; 77067 ==

== ENCOUNTER 2025-01-25 07:16 | Day surgery (SDC) | payer OTHER, SELFPAY ==
--- OUTSIDE RECORDS SUMMARY | 2024-11-26 16:08 | XMS_ITS ---
Author Organization [facility] Address [address] [place] [address] Care Team Providers Care Park Warden Name Role Phone José Maddox M.D. Primary Care Provider Jey Villafuerte Jr [phone] REASON FOR VISIT rectal bleeding Encounters Encounter Location Date Provider Diagnosis [facility] [address] [place] [address] 08/10/2024 Jey Norris Jr Plan Of Treatment Next Appt Details Provider Name:Jey bustos Jr, 12/21/2024 11:20:00 AM, [address] [place] [address] , [place], [place], [phone], Progress Notes * VONNIE REYESDOB:1965 (59 yo F)Acc No.[id number]:08/10/2024 Patient:?VONNIE REYES :1965???Age:59 Y???Sex:Female Address:[address], [place] [address] * true * Date:? Generated for Printi ng/Fadesig/eTransmitting on:?11/26/2024 04:08 PM EDT
--- OUTSIDE RECORDS SUMMARY | 2024-11-26 16:08 | XMS_ITS ---
Author Organization [facility] Address [address] [place] [address] Care Team Providers Care Physical Instructor Name Role Phone José Maddox M.D. Primary Care Provider Jey Villafuerte Jr Allergies No Known Allergies REASON FOR VISIT Patient presents today for a rectal bleeding Medications Medication SIG (Take, Route, Frequency, Duration) Notes Start Date End Date Status FLUoxetine HCl 20 MG Oral for 30 Days Active Atorvastatin Calcium 20 MG Oral for 30 Days Active Multivitamin Unknown SUMAtriptan Succinate as needed Unknown Immunizations Vaccine Route Administration Date Status Comme nts Influenza Unknown 11/26/2024 Refused Vital Signs Temperature 97.5 degrees Fahrenheit 11/27/19 25 Blood pressure systolic 001 mm Hg 11/27/19 25 Blood pressure diastolic 01 mm Hg 025 Height 68.75 in 11/26/2024 Weight 175.6 lbs 11/26/2024 BMI 26.12 kg/m2 11/26/2024 Encounters Encounter Location Date Provider Diagnosis [facility] [address] [place] [phone] 11/26/2024 Jey Norris Jr Rectal bleeding K62.5 Assessments Encounter Date Diagnosis (ICD Code) Assessment Notes Treatment Notes Treatment Clinical Notes Section Notes 11/26/2024 Rectal bleeding (ICD-10 - K62.5) Plan Of Treatment Future Test Test Name Order Date COLONOSCOPY 11/26/2024 Next Appt Details Provider Name:Jey bustos Jr, 12/21/2024 11:20:00 AM, [address], [place], [phone], Progress Notes * VONNIE REYESDOB:1965 (59 yo F)Acc No.[id number]:11/26/2024 Progress Notes Patient:VONNIE MAY Provider:?Jey Norris MD :1965???Age:59 Y???Sex:Female D ate:11/26/2024 [facility] Pcp:José Maddox M.D. Subjective: * Chief Complaints: * ???1. Patient presents today for a rectal bleeding. * Medical History:?Anxiety, Mi graines, Hematuria, Colon polyps, Hx of kidney stones, Mild emphysema. * Surgical History:?d&c 20 yea rs ago , cystoscopy , colonoscopy . * Family History:?Father: dece ased, diagnosed with Diabetes.?Mother: .? Family history is negative for colon cancer polyps. There is a history of diabetes melanoma and breast cancer.? No family history of colon cancer or liver cancer. * Social History:?Tobacco Use:?Tobacco Use/Smoking?Are you a: nonsmoker.?Drugs/Alcohol:?Alcohol Screen?Points: 0, Interpretation: Negative.?Miscellaneous:?Marital status: . Occupation: teacher. ???She denies tobacco and alcohol use. She teaches at a local community college. * Medications:?Taking FLUoxeti ne HCl 20 MG Capsule Oral , Taking Atorvastatin Calcium 20 MG Tablet Oral , Discontinued Wellbutrin , Discontinued Aspirin Adult Low Dose , Discontinued MiraLax (colon prep) 8.3 ounce ((238) grams mixed with Gatorade or Crystal Light orally begin at 5:00 p.m. the day before the procedure , Unknown Multivitamin , Unknown SUMAtriptan Succinate , Notes to Pharmacist: as needed * Allergies:?N.K.D.A. Objective: * Vitals:?Wt: 175.6 lbs, Ht: 6 8.75 in, BMI:26.12Index, BP: 001/01 mm Hg, Temp: 97.5, Wt-k.65. Assessment: * Assessment: 1.?Rectal bleeding - K62.5 ( Primary)??? Plan: * Treatment: * Immunizations:? Influenza (Not administered - Refused: Patient decision) * Preventive Medicine:? ??Counseling:?Care goal follow-up plan:?Above Normal BMI Follow-up?Dietary management education, guidance, and counseling,?BMI management provided?Yes.? * * The named appointment provid er may or may not be the originator of this progress note, and it is not deemed complete until electronically signed by the appointment provider. Sign off status: Pending * Provider:?Jey Norris MD Date:?0 11/26/2024 Generated for Niko palma/Lewis/Getachewitting on:?11/26/2024 04:08 PM EDT
--- OUTSIDE RECORDS SUMMARY | 2024-11-26 16:08 | XMS_ITS | Data Portability ---
Author Organization [facility] Address [address] [place] [address] Care Team Providers Care Painting Trades Worker Name Role Phone AYUSH CLAIRE Primary Care Provider LORRIEISABELLAAYLEEN Primary Care Provider [phone] Assessment No assessment recorded. Plan of Treatment Reminders Order Date Submit Date Provider Last Modified By Organization Details Last Modified Time Details Appointments None recorded. Lab culture, urine [address] [facility], [address] [place], [address], 5 10:08:09 Referral neurologist referral - 50 yo F w/recent event of memory loss preceded by a 30 seconds of nausea, difficulty w/name recognition , took approximate ly 3 hours to feel clear . HX of migraines // pt. has an appt. 07/16/2015 @ 12:30 pm 2014 015 ESDRAS Cunningham MD, [address] [place] [address], [address], 6 05:03:25 Procedures None recorded. Surgeries None recorded. Imaging None recorded. Medication Orders None recorded. Patient TargetsNo targets recorded. Patient Instructions Encounter Date Encounter Id Patient Instructions Last Modified By Organization Details Last Modified Time 08/16/2013 [id number] colon polyps: care instructions emcarthur Not available 08/16/2013 15:10:22 Well Visit, Ages 18 to 65: Care Instructions emcarthur Not available 08/16/2013 15:10:22 My Health To Do List As we discussed and agreed upon at your visit please work on the following: skillip Not available 08/19/2013 21:08:25 06/30/2015 [id number] 25 min visit: 50 % of time [...] URINE , ROUTI NE MICRO NUMBE R: [id number] TEST STATU S: FINAL SPECI MEN SOURC E: URINE SPECI MEN QUALI TY: ADEQU ATE RESUL T: No Growt h Not Available [facility] [address], [address], 07/02/2015 08:26:54 06/13/20 14 06/10/2014 imagi ng/di agnos tic resul t No observ ation record ed. [facility] [address] [facility] [place], [address] 06/13/2014 19:48:11 03/10/20 15 03/05/2015 imagi ng/di agnos tic resul t No observ ation record ed. [facility] ([facility]) [address] [place] [address] [place], [address], 03/13/2015 21:14:34 03/10/20 15 1965 imagi ng/di agnos tic resul t No observ ation record ed. [facility] ([facility]) [address] [place] [address] [place], [address], 03/13/2015 21:14:34 Result Notes None recorded. Procedures Surgical History None recorded. Imaging Results Imaging Date Name Status LastModified by Organ atmission hospital Details LastModified Time 06/10/2014 imaging/diag nostic result completed [facility] [address] [facility] [place], [address] 06/13/2014 19:48:11 03/05/2015 imaging/diag nostic result completed [facility] ([facility]) [address] [place] [address] [place], [address], 03/13/2015 21:14:34 1965 imaging/diag nostic result completed [facility] [address] [place] [address] [place], [address], 03/13/2015 21:14:34 Procedure Notes None recorded. Medical [...] Address Organization Details Last Updated DateTime 08/16/2013 506[address].4976 74 g 110 mm[Hg] 72 mm[Hg] Kitty Springer MA [facility] 08/16/2013 12:05:21 Date Recorded Body mass index (BMI) Body height Provider Name and Address Organization Details Last Updated DateTime 08/16/2013 23.7 kg/m2 175.26 cm Ayush Claire MD [address] [place] [address], [phone], [facility] 08/16/2013 12:08:40 Date Recorded Body weight Body height Body mass index (BMI) Heart rate Systolic blood pressure Diastolic blood pressure Provider Name and Address Organization Details Last Updated DateTime 5 21300.7 30819 g 175.26 cm 23.2 kg/m2 66 /min 130 mm[Hg] 60 mm[Hg] Nevaeh Cota LPN [facility] 5 14:00:41 Social History Question Answer Notes LastModified by Organizat ion Details LastModified Time Tobacco Smoking Status Former Smoker smoked from age [age]. [id number] [facility] 08/16/2013 12:05:22 What Is Your Level Of [...] Information not available 08/16/2013 Marital Status Rory rTiana Information not available 08/16/2013 Mosquito Repellent Used Routinely Yes Information not available 08/16/2013 How Many Children Do You Have? 3 Born: Brianna 1997; Flora 2000; [id number] Information not available 08/16/2013 Seat Belts Used [...] trivalent, PF 06/12/2013 completed Kitty Springer MA [facility] 08/16/2013 12:05:21 Past Encounters Encounter ID Performer Location Encounter Start Date Encounter Closed Date Diagnosis/Indication Diagnosis SNOMED-CT Code Diagnosis ICD10 Code Diagnosis Note [id number] Nava LING, [facility], [address] [place] [address] 08/16/2013 11:15:15 08/17/2013 10:34:42 Adult health examination [id number] see Risk Assessment and Lifestyle Change Counseling section above; wants hepatitis checked x 1; UTD on prevention per her history. will request records to confirm. Counseling [id number] Polyp of colon [id number] JASKARAN Edgar , [facility], [address] [place] [address] 06/30/2015 13:35:41 06/30/2015 14:59:28 Temporary loss of memory 486092039 R41.3 Episode of impaired memory 3 d. ago as described in HPI, referral to Neurology. Case discussed w/Dr. Dominguez. Advised if event should reoccur, call 911. Agrees w/plan. Increased frequency of urination 681157948 R35.0 Health Concerns Section Related Observation LastModified by Organization Detai ls LastModified Time None Recorded Concern Status LastModified by Organization Details LastModified Time None Recorded Advance Directives Directive None Recorded Payers Encounter Date Sequence Insurance Name Policy Number Policy Grace Covered Member ID Grace Member ID Guarantor Name 08/16/2013 1 [facility] - NAVIGATOR (PPO) [id number] Ying Triana [id number] Ying Triana 06/30/2015 1 [facility] - [employer] - NAVIGATOR (POS) [id number] Ying Triana [id number] Ying Triana Notes Date Note Type Note [...] ago, up often @ night. JASKARAN Edgar [address] [place] [address], [phone], [facility] 07/04/2015 10:08:22 OBGyn Episode No OBEpisode recorded.
--- OUTSIDE RECORDS SUMMARY | 2024-11-26 16:08 | XMS_ITS | Patient Health Record ---
Author Organization [facility] Address [address] [place] [address] Care Team Providers Care Balancer Scale Name Role Phone José Peterson M.D. Primary Care Provider Jey Villafuerte Jr Unavailable Allergies No Known Allergies Reason For Referral Referring Provider First Name José Referring Provider Last Name Varsha Referred Organization [facility] Referred Provider Jey Norris Jr Referred Address [address] [facility],[place], [place],[address],[place] Referred Provider Specialty Gastroentero logy General Notes Desirae Ortiz 024 03:30:05 PM EST > requested a [facility] referral for visit with Dr. Norris on 10-15-2024 (said 09-12-2024) [phone], Desirae Ortiz 09/04/2024 03:24:57 PM EST > requested referral again, Desirae Ortiz 09/05/2024 09:29:21 AM EST > José Peterson's office called and stated they are not listed as the pcp and will contact the patient., Desirae Ortiz 09/17/2024 09:35:02 AM EST > NEED NEW LOCATION PHONE, FAX EXT FOR ELIAS PETERSON IS NO LONGER WITH [facility], Desirae Ortiz 09/26/2024 08:58:57 AM > Called and spoke with Dr. José Peterson and she does not believe an insurance referral is required since the pt has a ppo plan. Referral Priority Routine Medications Medication SIG (Take, Route, Frequency, Duration) Notes Start Date End Date Status SUMAtriptan Succinate as needed Unknown FLUoxetine HCl 20 MG Oral for 30 Days Active Atorvastatin Calcium 20 MG Oral for 30 Days Active Multivitamin Unknown Immunizations Vaccine Route Administration Date Status Comme nts Influenza Unknown 04/29/2019 Administered Influenza Unknown 11/26/2024 Refused Problems Problem Type SNOMED Code ICD Code Onset Dates Problem Status W/U Status Risk Notes Problem 203105507 Colon cancer screening (Z12.11) Active confirmed Problem 19050025 Rectal bleeding (K62.5) Active confirmed Vital Signs Temperature 97.5 degrees Fahrenheit 11/26/2024 Blood pressure diastolic 01 mm Hg 11/26/2024 Height 68.75 in 11/26/2024 Blood pressure systolic 001 mm Hg 11/26/2024 Weight 175.6 lbs 11/26/2024 BMI 26.12 kg/m2 11/26/2024 Encounters Encounter Location Date Provider Diagnosis [facility] [address] [place] [phone] 11/26/2024 Jey Norris Jr Rectal bleeding K62.5 [facility] [address] [place] [phone] 08/10/2024 Jey Norris Jr Assessments Encounter Date Diagnosis (ICD Code) Assessment Notes Treatment Notes Treatment Clinical Notes Section Notes 11/26/2024 Rectal bleeding (ICD-10 - K62.5) Plan Of Treatment Future Test Test Name Order Date COLONOSCOPY 06/03/2016 COLONOSCOPY 01/16/2020 COLONOSCOPY 11/26/2024 Next Appt Details Provider Name:Jey bustos Jr, 12/21/2024 11:20:00 AM, [address] [facility] , [place], [place], [phone], Insurance Providers Payer Name Payer Address Payer Phone Subscriber Number Group Number Insured Name Patient Relationship to Insured Coverage Start Date Coverage End Date [employer] [address] [place] [phone] [id number] VONNIE REYES Self - patient is the insured Medical (General) History Medical History History ICD Code anxiety migraines hematuria colon polyps Hx of kidney stones mild emphysema Surgical History Surgery Date(Month/Year) colonoscopy cystoscopy d&c 20 years ago
--- OUTSIDE RECORDS SUMMARY | 2024-11-26 16:08 | XMS_ITS | Data Portability ---
Author Organization [facility], Home Service Address [address] [place] [address] Assessment Encounter Date Assessment Date Assessment LastModified by Organization Details LastModified Time 11/04/2020 11/04/2020 Patient agreed and verbally consents to this audio and video Telehealth appt via a [place] [id number] [place] [id number] (NURSE LIAISON) MDM MODERATE MUST MEET 2 OUT OF [...] CMP, serum or plasma 2021 [email or web address] [facility], [address] [place] [address], [address], 2 10:32:36 CBC w/ auto diff 2021 [facility], [address] [place] [address], [address], 2 12:10:40 lipid panel, blood 2021 [facility], [address] [place] [address], [address], 2 12:10:40 vitamin D, 25-hydroxy , total, serum 2021 022 [email or web address] 10 [facility], [address] [place] [address], [address], 2 10:32:36 TSH, serum or plasma 2021 022 [facility], [address] [place] [address], [address], 12:10:39 vitamin B12, serum 2021 [facility], [address] [place] [address], [address], 12:10:40 HbA1c (hemoglobi n A1c), blood 2021 022 [facility], [address] [place] [address], [address], 12:10:39 CMP, serum or plasma 2020 021 [email or web address] 10 [facility], [address] [place] [address], [address], 08:13:27 lipid panel, blood 2020 021 [facility], [address] [place] [address], [address], 15:35:17 CBC w/ auto diff 2020 021 [facility], [address] [place] [address], [address], 15:35:17 vitamin D, 25-hydroxy , total, serum 2020 021 [email or web address] 10 [facility], [address] [place] [address], [address], 1 08:13:27 TSH, serum or plasma 2020 021 [facility], [address] [place] [address], [address], 15:35:17 Referral None recorded. Procedures None recorded. Surgeries None recorded. Imaging CT, chest, w/o contrast 2022 023 [facility], [address] [place] [address], [address], 3 09:22:29 PFT, complete 2022 023 [facility], [address] [place] [address], [address], 3 08:39:35 bone density 2021 022 [email or web address] [facility], [address] [place] [address], [address], 2 08:05:53 Medication Orders montelukas t 10 mg tablet 2020 021 [id number], [address] [place] [address], [id number], 11:20:02 Patient TargetsNo targets recorded. Patient Instructions Encounter Date Encounter Id Patient Instructions Last Modified By Organization Details Last Modified Time 11/25/2020 [id number] kidney stone: care instructions Not available 11/25/2020 15:32:44 Patient Health Questionnaire-9* Not available 11/25/2020 15:32:44 Reason for Referral None Reported. Results Created Date Observation Date Name Description Value Unit Range Abnormal Flag Note LastModifiedBy Organization Detail LastModifiedTime 10/10/19 21 10/10/2020 XR, chest , 2 view No observ ation record ed. [facility] [address] [place] [address] [place], [address], 10/10/2020 14:49:33 10/15/1910/15/2020 CT, sinus es, w/o contr ast No observ ation record ed. [facility] [address], [place], [address], 10/15/2020 11:52:12 11/06/19 22 11/04/2021 MAMMO , scree kaye, digit al, bilat eral No observ ation record ed. [email or web address] [place], [address], 11/06/2021 09:30:31 05/20/20 22 05/20/2022 US, marisol bernstein, bilat eral No observ ation record ed. [address] [place], [address], 05/21/2022 08:20:10 05/20/20 22 05/20/2022 US, marisol bernstein bilat eral No observ ation record ed. [address] [place], [address], 05/21/2022 08:20:31 11/16/19 23 11/12/2022 MAMMO , samirae kaye, digit al, bilat eral No observ ation record ed. [email or web address] [address] [place], [address], 11/15/2022 09:44:40 06/13/2006/13/2023 MAMMO , samirae kaye, digit al, bilat eral No observ ation record ed. [email or web address] [address] [place], [address], 06/14/2023 09:37:10 06/13/20 06/13/2023 MAMMO , scree kaye, digit al, bilat eral No observ ation record ed. [address] [place], [address], 06/14/2023 09:41:03 07/12/20 23 07/01/2023 PFT, compl ete No observ ation record ed. [facility] (Medical Records) [address] [place], [address], 07/12/2023 08:26:25 07/15/20 23 07/13/2023 XR, chest , 2 view No observ ation record ed. [facility] (Medical Records) [address] [place], [address], 07/15/2023 08:44:26 09/08/19 24 08/31/2023 CT, chest , w/o contr ast No observ ation record ed. [facility] (Medical Records) [address] [place], [address], 09/09/2023 15:52:29 12/06/19 24 11/19/2023 MAMMO , scree kaye, digit al, bilat eral No observ ation record ed. [address] [place], [address], 12/07/2023 08:58:22 Result Notes None recorded. Problems Name Problem SNOMED Code Status Onset Date Resolution Date Notes Provider Name and Address Organization Details Recorded Time Calculus of kidney and ureter 892277418 Active 2018 Not Available [facility] 3 15:49:35 Mass of chest wall 091362743 Active 2018 Not Available [facility] 3 15:49:35 Disorder of vitamin B12 597121356 Active 2022 Not Available [facility] 3 15:49:35 Hyperchol esterolem ia 41996634 Active 2022 Not Available [facility] 3 15:49:35 Dyspnea 211120779 Active 2022 DAGO LOPEZ [address] [place], [address], [facility] 3 11:06:31 Migraine 30645644 Active 2017 Not Available [facility] 3 15:49:35 Hemorrhoi ds 01811157 Active 2017 Not Available [facility] 3 15:49:35 Tinnitus 65563775 Active 2017 Not Available [facility] 3 15:49:35 Anxiety 29534714 Active 2017 Not Available [facility] 3 15:49:35 Fibrocyst ic disease of breast 69432710 Active 2017 Q6 months US, mammo yearly Not Available [facility] 3 15:49:35 Polyp of colon 17950929 Active 2017 Not Available [facility] 3 15:49:35 Problem Notes None recorded. Procedures Surgical History Date Name Laterality Status Provider Name and Address Organization Details Recorded Time 09/01/19 16 Colonoscopy completed Diana Nielson NP, [address] [place] [address], [address], [facility] 02/21/2018 14:59:53 Dilation and curettage completed Diana Nielson NP, [address] [place] [address], [address], [facility] 02/21/2018 14:59:35 Imaging Results Imaging Date Name Status LastModified by Organiz ation Details LastModified Time 10/10/2020 XR, chest, 2 view completed [facility] [address] [place] [address] [place], [address], 10/10/2020 14:49:33 10/15/2020 CT, sinuses, w/o contrast completed [facility] [address] [facility], [place], [address], 10/15/2020 11:52:12 11/04/2021 MAMMO, screening, digital, bilateral completed [email or web address] [address] [place], [address], 11/06/2021 09:30:31 05/20/2022 US, breast, bilateral completed [email or web address] [address] [place], [address], 05/21/2022 08:20:10 05/20/2022 US, breast, [email or web address] [address] [place], [address], 05/21/2022 08:20:31 11/12/2022 MAMMO, screening, digital, bilateral completed [email or web address] [address] [place], [address], 11/15/2022 09:44:40 06/13/2023 MAMMO, screening, digital, bilateral completed [email or web address] [address] [place], [address], 06/14/2023 09:37:10 06/13/2023 MAMMO, screening, digital, bilateral completed [email or web address] [address] [place], [address], 06/14/2023 09:41:03 07/01/2023 PFT, complete completed [facility] (Medical Records) [address] [facility] [place], [address], 07/12/2023 08:26:25 07/13/2023 XR, chest, 2 view completed [facility] (Medical Records) [address] [place], [address], 07/15/2023 08:44:26 08/31/2023 CT, chest, w/o contrast completed [email or web address] [facility] (Medical Records) [address] [facility], [place], [address], 09/09/2023 15:52:29 11/19/2023 MAMMO, screening, digital, bilateral completed [email or web address] [facility] [address] [place], [address], 12/07/2023 08:58:22 Procedure Notes None recorded. Medical Equipment None Reported. Allergies Allergen ID Allergen Name Allergen Category Reaction Reaction Severity Criticality Documentation Date Start Date Code Code System Note Provider Name and Address Organization Details Recorded Time 3333 MILK OF MAGNDAPHNIE medicatio n Not available Not available Not available 03/30/2019 19526 9 RxNorm Tami mcclelland [place] - [facility] 9 11:50:36 Medications Name [...] Updated DateTime 1 174.63 cm 24.1 kg/m2 08539.6 g 79 /min 98 % 98 % 110 mm[Hg] 60 mm[Hg] Lori Avendano [facility] 1 15:06:35 Date Recorded Body height Heart rate Oxygen saturation Oxygen saturation in Arterial blood by Pulse oximetry Systolic blood pressure Diastolic blood pressure Provider Name and Address Organization Details Last Updated DateTime 1 174.63 cm 72 /min 98 % 98 % 122 mm[Hg] 76 mm[Hg] DAGO LOPEZ [address] [place], [address] [place] [address] Internal Medicine 1 11:21:31 Date Recorded Body height Body mass index (BMI) Body weight Heart rate Oxygen saturation Oxygen saturation in Arterial blood by Pulse oximetry Systolic blood pressure Diastolic blood pressure Provider Name and Address Organization Details Last Updated DateTime 2 174.63 cm 25.3 kg/m2 65384.0 6 g 93 /min 98 % 98 % 124 mm[Hg] 78 mm[Hg] Ying Salinas [facility] 2 11:37:27 Date Recorded Body height Body mass index (BMI) Body weight Heart rate Oxygen saturation Oxygen saturation in Arterial blood by Pulse oximetry Systolic blood pressure Diastolic blood pressure Provider Name and Address Organization Details Last Updated DateTime 3 172.72 cm 25.8 kg/m2 11730.7 g 89 /min 98 % 98 % 122 mm[Hg] 80 mm[Hg] [facility] 3 10:39:53 Social History Question Answer Notes LastModified by Organizat ion Details LastModified Time Tobacco Smoking Status Former Smoker Not Available [facility] 07/01/2020 03:36:24 What Was The Date Of Your Most Recent Tobacco Screening? 06/15/2023 [email or web address] Information not available 06/15/2023 How Many Years Have You Smoked Tobacco? 11 [id number] Information not available 07/01/2020 Do You Or Have You Ever Used Any Other Forms Of Tobacco Or Nicotine? No [email or web address] Information not available 06/15/2023 Sex: Unknown Functional [...] N Breast Cancer N Blood Transfusion N COPD N Depression Y Hypothyroidism N Lung Disease N Defects or Inherited Disease N Difficulty Swallowing N Anesthesia Complications Y Anxiety Disorder Y Muscle, Joint, or Bone Problems N Obesity N Arthritis Infertility N Polyps Y Mental Disorder N Stroke N Bladder or Kidney Problems N High Cholesterol N Liver Disease N Headaches Y Kidney Disease N Allergies/Hayfever N Heart Problems N Hospitalizations N Thyroid Problems N Eating Disorder N Anemia N Constipation Y Mental Illness N Ovarian Cancer N Diabetes N Seizures/Epilepsy N Congestive Heart Failure (CHF) N Abuse/Domestic Violence N Hepatitis N Heart Disease N Pulmonary Embolism N Hypertension N Chronic Ear Infections N Chicken Pox Y Autism Spectrum Disorder [...] mcg/0.3 mL dose [address] [facility] 05/11/2021 15:38:45 Influenza, split virus, quadrivalent, preservative 9 completed Colt Hernandez [address], [address] 07/28/2019 09:31:01 Influenza, split virus, quadrivalent, preservative 0 [facility] 15:05:49 Past Encounters Encounter ID Performer Location Encounter Start Date Encounter Closed Date Diagnosis/Indication Diagnosis SNOMED-CT Code Diagnosis ICD10 Code Diagnosis Note [id number] Diana Nielson NP, [address] [address] 02/22/2018 10:16:48 02/22/2018 16:01:52 Adult health examination 559828818 Z00.00 Depressive disorder 3548 9007 F32.89 stable Fibrocysti c disease of breast 71269172 N60.19 up to date with Dr. Humberto Key History of calculus of kidney 419437366 Z87.442 Perimenopausal state 347 8809659 26090 Z78.0 continue healthy diet/exerc ise [id number] Diana Nielson NP, [address] [place] [address] 05/10/2018 11:44:27 05/10/2018 14:05:47 Cyst of skin 724398751 L72.8 [id number] Colt Hernandez [facility] [address] [address] 02/12/2019 10:25:22 02/12/2019 10:57:33 Calculus of kidney and ureter 166642301 N20.2 stable and is not having any symptoms Mass of chest wall 63009 4000 R22.2 reassuranc e that this is a superficia l vein and of no consequenc e Adult heal th examination 245166206 Z00.00 [id number] Colt Hernandez DO [facility] [address] [facility] [address] [address] 09/04/2019 10:00:49 09/04/2019 10:31:17 Adult health examination 896184577 Z00.00 Doing well Will recheck CBC Tuesday Hemorrhoids 66419913 K64 .9 Having flair currently but controllin g it well Anxiety 39498232 F41.9 Very well controlled with current meds Mass of chest wall 05300 4000 R22.2 reassuranc e that this is a superficia l vein and of no consequenc e Has resolved now [id number] DAGO LOPEZ [facility] [address] [facility] [address],[place] [address] 10/10/2020 09:10:33 10/10/2020 10:27:23 Ex-smoker 0860116 Z87.891 Chronic sinusitis 586010 00 J32.9 [id number] DAGO LOPEZ [facility] [address] [facility] [address] [address] 11/04/2020 08:50:20 11/05/2020 09:16:06 Allergic rhinitis 61698832 J30.9 will trial patient on singulair and fu in a week Nasal congestion 1684091 0 R09.81 will still follow up with ENT to exclude all other possible causes of ongoing congestion [id number] Colt Hernandez DO [facility] [address] [facility] [address],[place] [address] 11/25/2020 14:57:26 11/25/2020 16:53:53 Active or passive immunization 895028726 Z23 covid up to date Adult heal th examination 713073070 Z00.00 doing great needs fbw Anxiety 54020040 F41.9 stable Calculus o f kidney and ureter 059364475 N20.2 stable and is not having any symptoms recent eval all good [id number] DAGO LOPEZ [facility] [address] [facility] [address],[place] [address] 05/13/2021 11:18:19 05/13/2021 15:48:56 Bilateral pinguecula of eyes 2617629318 11117 H11.153 will call for referral if needed [id number] Colt Hernandez DO [facility] [address] [facility] [address], [place] [address] 05/11/2022 11:25:49 05/11/2022 12:57:33 Active or passive immunization 698971355 Z23 covid up to date Adult heal examination 013732026 Z00.00 doing great needs fbw Migraine 91679930 G43.90 9 [id number] DAGO LOPEZ [facility] [address] [facility] [address], [place] [address] 06/15/2023 10:28:17 06/15/2023 11:27:56 Dyspnea 601896200 R06.02 agreed to work uphx of smokingcou ld be COPD or new asthma Adult heal th examination 129464921 Z00.00 BP is excellent Health Concerns Section Related Observation LastModified by Organization Detai ls LastModified Time None Recorded Concern Status LastModified by Organization Details LastModified Time None Recorded Advance Directives Directive None Recorded Payers Encounter Date Sequence Insurance Name Policy Number Policy Grace Covered Member ID Grace Member ID Guarantor Name 11/04/2020 1 [facility] (POS) [id number] Ying Mcarthur [id number] Ying Mcarthur 11/25/2020 1 [facility] (POS) [id number] Ying Mcarthur [id number] Ying Gomez Mcarthur 05/13/2021 1 [facility] (POS) [id number] Ying Gomez Mcarthur [id number] Ying Gomez Mcarthur 05/11/2022 1 [facility] (POS) [id number] Ying Mcarthur [id number] Ying Gomez Mcarthur 06/15/2023 1 [facility] Ying Mcarthur [id number] Ying Mcarthur Notes Date Note Type Note [...] with ENT as well DAGO LOPEZ [address] [place], [address], [facility] 11/04/2020 16:22:45 1 text/html Annual [...] discharge black color Colt Hernandez DO [address] [place], [address], [facility] 11/25/2020 15:34:36 1 text/html c/o [...] sun glasses as well DAGO LOPEZ [address] [place], [address], [facility] 05/13/2021 11:38:41 2 text/html Annual [...] small dime of vaginal bleed recently saw blasting miner and US and told her that all was normal so no further need for eval relates having her migraine like Colt Hernandez DO [address] [place], [address], [facility] 05/11/2022 12:03:35 3 text/html Annual WellnessReported [...] small dime of vaginal bleed recently saw blasting miner and US and told her that all was normal so no further need for eval migraines are worse, her MRI and carotids scanned which were negativethe patient is doing okay [facility], could be worsened due to recent covid check blasting miner: stable, recent papderm: stableneuro: stable doing really well smoked heavily until 30 (one to two packs per day) DAGO LOPEZ [address] [place] [address], [place], [address], [facility] 06/15/2023 11:19:19 OBGyn Episode No OBEpisode recorded.
[2025-01-23 14:09] VITALS: BMI 26.1
--- NOTE | 2025-01-24 09:16 | P.CONAN_ITS ---
HPI - Anesthesia Eval Consult details Narrative: 59yo F for Colonoscopy PMFSH Active Problems Active Problems: All Active Problems Multiple pulmonary nodules (Acute) Emphysema of lung (Acute) Environmental allergies (Acute) Dyspnea on exertion (Acute) Personal history of tobacco use (Acute) Reactive airway disease (Acute) Ganglion cyst (Acute) Dense breast tissue on mammogram (Acute) Past Medical History Medical History (Updated 01/23/25 @ 14:07 by Rosanna Jones RN) HLD (hyperlipidemia) COPD (chronic obstructive pulmonary disease) Hx of renal calculi Hematuria Migraines Anxiety Sigmoid diverticulosis Migraine Cystic breast Surgical History Surgical History (Updated 01/23/25 @ 14:07 by Rosanna Jones RN) Hx of cystoscopy History of colonoscopy (04/2020) History of dilatation and curettage (~2004) Social History Social History Patient Tobacco Use Status: Former Tobacco user Tobacco use type: Cigarette Cigarette Packs Per Day: 1.5 Cigarettes Per Day: 20 Years Smoked: 15 Current occupational status: employed Current occupation: rt hand / professor in [employer] Allergies Allergy/AdvReac Type Severity Reaction Status Date / Time No Known Allergies Allergy Verified 11/13/24 11:55 Home Medications ?Medication ?Instructions ?Recorded ?Confirmed ?Last Taken ?Type sumatriptan succinate 100 mg tablet 100 mg PO DIRECTED 04/16/22 11/13/24 Unknown History atorvastatin 20 mg tablet 20 mg PO BEDTIME 06/07/23 01/23/25 Unknown History fluoxetine 20 mg capsule 20 mg PO DAILY 02/14/24 01/23/25 Unknown History galcanezumab-gnlm 120 mg/mL mg subcut 02/14/24 11/13/24 Unknown History subcutaneous pen injector (Emgality Pen) propranolol 10 mg tablet 10 mg PO TID 02/14/24 11/13/24 Unknown History Exam Height,Weight and Vital Signs: Height 5 ft 8.75 in Weight 79.549 kg Assessment and Plan Assessment Anesthesia Assessment: Chart Reviewed
[2025-01-25 07:22] VITALS: BMI 25.5
--- NOTE | 2025-01-25 07:27 | MHC.SHP ---
Pre-Procedural Eval Section A - 24 Hr Update-Section A only Date of Service: 01/25/25 Section B - Complete if H&P > 30 days Chief Complaint: Hemorrhage of anus and rectum Details of Present Illness: see H&P no changes Relevant Family History (Specify if Yes): No Relevant Social History: None Present Medications: see Short Stay Collaborative assessment Medical History: No relevant PMH Allergies: Allergies Allergy/AdvReac Type Severity Reaction Status Date / Time No Known Allergies Allergy Verified 01/25/25 07:25 Review of Systems Sugical H&P ROS: Negative: Constitution, Cardiovascular, Respiratory, Neurological, Psychiatric, Hem-Onc, Allergic/Immunologic, Gastrointestinal, Genitourinary, Musculoskeletal, Integumentary, Endocrine and Eyes/Ears/Nose/Throat Exam Surgical H&P Exam: Normal: HEENT, Normal: Heart, Normal: Lungs, Normal: Extremities, Normal: Abdomen, Normal: Skin and Normal: Neurological Plan Diagnosis/Plan: Unchanged I have reviewed the history and physical and performed a pertinent physical examination on my patient. No changes have occurred unless specified. Time Spent With Patient Time: Total time managing care of this patient today ____ minutes.
[2025-01-25 07:43] VITALS: BP 103/59; PULSE 59; RESP 16; TEMP 36.6; O2SAT 96
[2025-01-25] MEDS: Lactated Ringers 1,000 ML 100 ML IVCONT (07:45)
--- NOTE | 2025-01-25 08:04 | P.CONAN_ITS ---
[facility] Active Problems Active Problems: All Active Problems Multiple pulmonary nodules (Acute) Emphysema of lung (Acute) Environmental allergies (Acute) Dyspnea on exertion (Acute) Personal history of tobacco use (Acute) Reactive airway disease (Acute) Ganglion cyst (Acute) Dense breast tissue on mammogram (Acute) Past Medical History Medical History HLD (hyperlipidemia) COPD (chronic obstructive pulmonary disease) Hx of renal calculi Hematuria Migraines Anxiety Sigmoid diverticulosis Migraine Cystic breast Functional capacity: independent ambulation Patient : No Family History Family history of problems with anesthesia: No Surgical History Surgical History Hx of cystoscopy History of colonoscopy (04/2020) History of dilatation and curettage (~2004) History of Problems with Anesthesia: No Social History Social History Patient Tobacco Use Status: Former Tobacco user Tobacco use type: Cigarette Cigarette Packs Per Day: 1.5 Cigarettes Per Day: 20 Years Smoked: 15 Have you been hit, kicked, punched, or otherwise hurt by someone within the past year? 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[place] Meds Allergies Allergy/AdvReac Type Severity Reaction Status Date / Time No Known Allergies Allergy Verified 01/25/25 07:25 Active Medications: Current Medications Albuterol Sulfate (Albuterol Sulfate (0.083%) 2.5 Mg/3 Ml Vial.Neb) 2.5 mg INHALE ONCE PRN PRN Reason: Shortness of Breath/Wheezing Lactated Ringer's (Lr) 1,000 mls @ 100 mls/hr IVCONT .Q10H NOE Last Admin: 01/25/25 07:45 Dose: 100 mls/hr Home Medications ?Medication ?Instructions ?Recorded ?Confirmed ?Last Taken ?Type sumatriptan succinate 100 mg tablet 100 mg PO DIRECTED 04/16/22 11/13/24 Unknown History atorvastatin 20 mg tablet 20 mg PO BEDTIME 06/07/23 01/23/25 Unknown History fluoxetine 20 mg capsule 20 mg PO DAILY 02/14/24 01/23/25 Unknown History galcanezumab-gnlm 120 mg/mL mg subcut 02/14/24 11/13/24 Unknown History subcutaneous pen injector (Emgality Pen) Exam Height,Weight and Vital Signs: Height 5 ft 8.75 in Weight 77.7 kg Last Vital Signs Temp 97.9 F 01/25/25 07:43 Pulse 59 01/25/25 07:43 Resp 16 01/25/25 07:43 BP 103/59 L 01/25/25 07:43 Pulse Ox 96 01/25/25 07:43 O2 Del Method Room Air 01/25/25 07:43 Airway Mallampati Class: II TM Dist: >3cm Neck ROM: Full Heart: RRR Lungs: CTA Assessment and Plan Assessment Anesthesia Assessment: Anesthesia Plan Discussed Final Anesthetic Review Family History of Problems with Anesthesia: No History of Problems with Anesthesia: No NPO: Yes ASA Class: II Final Preanesthetic Review: Meds/Allgs Chart Reviewed, Consent Obtained/Reviewed and Anes Risks/Benef Reviewed Patient Risk: Low Procedure Risk: Low Anesthetic Plan Anesthetic Plan: MAC: Disposition: Standard PACU
[2025-01-25 09:00] VITALS: BP 88/52; PULSE 51; RESP 14; TEMP 36.3; O2SAT 97
[2025-01-25 09:15] VITALS: BP 91/64; PULSE 75; RESP 20; TEMP 36.2; O2SAT 99
--- NOTE | 2025-01-25 09:43 | PM.OP ---
Brief Operative Note Date of Service: 01/25/25 Pre-op diagnosis: rectal bleeding Post-op diagnosis: same Procedure: colonoscopy Surgeon: Jey Norris MD Anesthesia: MAC Was an [employer] Analyst used for this Procedure?: No Estimated blood loss (mL): 5 Pathology: other Condition: stable Disposition: PACU
--- NOTE | 2025-01-25 10:05 | HO.POSTANES ---
Post Anesthesia Evaluation Post Anesthesia Evaluation Date of Service: 01/25/25 Vital Signs: Vital Signs Temp Pulse Resp BP Pulse Ox O2 Del Method 01/25/25 09:15 97.1 F 75 20 91/64 99 Room Air 01/25/25 09:00 97.3 F 51 14 88/52 L 97 Room Air 01/25/25 07:43 97.9 F 59 16 103/59 L 96 Room Air Anesthesia: Monitored Mental Status: Awake Pain Control: Satisfactory Nausea/Vomiting: None Hydration: Adequate Anesthesia-Related Issues: No Anes. Related Issues
--- NOTE | 2025-01-25 11:23 | OP_ITS ---
DATE OF SERVICE: 01/25/2025 SURGEON: Jey Norris MD PREOPERATIVE DIAGNOSIS: POSTOPERATIVE DIAGNOSIS: PROCEDURE PERFORMED: ESTIMATED BLOOD LOSS: COMPLICATIONS: ANESTHESIA: Medications, monitored anesthesia care. ASSISTANTS: SPECIMENS: PROCEDURE: Colonoscopy to the cecum with biopsy. INDICATION: Rectal bleeding. DESCRIPTION OF PROCEDURE: A history and physical performed. The risks and benefits of the procedure were explained to the patient and informed consent was obtained. The patient was placed in the left lateral decubitus position. A digital rectal exam was performed and was found to be normal. The Olympus pediatric video colonoscope was introduced into the rectum and advanced to the cecum. The cecum was identified by transillumination, palpation, and identification of ileocecal valve. Examination was performed. The scope was removed. She tolerated the procedure well and was taken to recovery area in stable condition. FINDINGS: The terminal ileum was not examined. The visualized colonic mucosa was normal. The quality of the prep was good. A single polyp in the right colon measuring less than 5 mm was identified and removed with biopsy forceps. No other polyps were identified. There was mild sigmoid diverticulosis. Retroflexed examination showed some small to moderate-sized internal hemorrhoids. IMPRESSION: Colon polyp. RECOMMENDATION: Follow up the biopsy results. MD WILLIAM Amador/MODL / [id number]
== END 2025-01-25 09:52 | disposition home or self-care (01) ==
PROVIDERS: PCP Student in an Organized Health Care Education/Training Program; Visit Provider Internal Medicine Gastroenterology
PROC: 0DJD8ZZ Inspection of Lower Intestinal Tract, Via Natural or Artificial Opening Endoscopic (ICD-10-PCS; CPT 45378; principal; 2025-01-25 08:30)
DX: K62.5 Hemorrhage of anus and rectum (principal); Z86.0101 Personal history of adenomatous and serrated colon polyps; D12.2 Benign neoplasm of ascending colon; K57.30 Diverticulosis of large intestine without perforation or abscess without bleeding; K64.8 Other hemorrhoids; J44.9 Chronic obstructive pulmonary disease, unspecified; E78.5 Hyperlipidemia, unspecified; R31.9 Hematuria, unspecified; G43.909 Migraine, unspecified, not intractable, without status migrainosus; F41.9 Anxiety disorder, unspecified; Z87.442 Personal history of urinary calculi; Z79.899 Other long term (current) drug therapy; Z87.891 Personal history of nicotine dependence
CPT/HCPCS: 45380; 88305; J2003; J2704